=== PATIENT | female | born 1955 | race Caucasian/White ===

== ENCOUNTER → 2024-12-13 10:33 | Outpatient (BNVA) | payer OTHER, SELFPAY | PROVIDERS: PCP Internal Medicine; Visit Provider Physician Assistant Medical | DX: S60.211A Contusion of right wrist, initial encounter (principal); S80.02XA Contusion of left knee, initial encounter; S80.01XA Contusion of right knee, initial encounter; W01.0XXA Fall on same level from slipping, tripping and stumbling without subsequent striking against object, initial encounter | CPT/HCPCS: 29125; 73110; 73130; 73562; 99204 ==

== ENCOUNTER → 2024-12-18 09:02 | Outpatient (BNVA) | payer OTHER, SELFPAY | PROVIDERS: PCP Internal Medicine; Visit Provider Physician Assistant Medical | DX: S60.031A Contusion of right middle finger without damage to nail, initial encounter (principal); W01.0XXA Fall on same level from slipping, tripping and stumbling without subsequent striking against object, initial encounter | CPT/HCPCS: 99213 ==

== ENCOUNTER 2024-12-28 08:57 | Outpatient (REF) | payer OTHER, MEDICARE, SELFPAY ==
--- NOTE | ~2024-12-28 | XR_ITS ---
EXAMINATION: XR HAND 3 OR MORE VIEWS RIGHT HISTORY: M79.641 - Pain in right hand COMPARISON: Comparison is made with the prior examination dated 12/13/2024. FINDINGS: Three views of the right hand are submitted. Osseous mineralization is normal. There is no fracture or dislocation. There is mild degenerative change of the interphalangeal joint of the thumb. The soft tissues are unremarkable. XR/XR hand RT min 3V IMPRESSION: Mild degenerative change of the interphalangeal joint of the thumb. Electronically signed by: Elvis Vazquez MD 12/31/2024 02:37 PM EDT
--- OUTSIDE RECORDS SUMMARY | 2024-12-28 09:38 | XMS_ITS | Data Portability ---
Author Organization [place] - [facility],, LEISA MATHEWS MD Address [address] [address] Care Team Providers Care Mixing Engineer Name Role Phone ABDULAZIZ TRENT Primary Care Provider Assessment No assessment recorded. Plan of Treatment Reminders Order Date Submit Date Provider Last Modified By Organization Details Last Modified Time Details Appointments None recorded. Lab pap test, thinprep, cervical 2022 023 [facility] (Centralized Electronic Ordering - All Locations), Patient Can Go To The Location Of Their Choice, [facility] 3 07:28:08 wet mount, vaginal 2020 021 [email or web address] 1 In-Office Order, Internal Use Only DO Not Attach Compendium DO Not Attach Compendium, Do Not Delete/merge, [id number] 10:54:24 CT + NG DNA, PCR, unspecifie d specimen 2020 021 [facility], [address] [place], [address], 07:34:29 Referral None recorded. Procedures None recorded. Surgeries None recorded. Imaging MAMMO, screening, digital, bilateral - Breast Aspiration and/or Biopsy if needed 2022 023 [facility] ([facility]), [address] [place], [address], 4 07:38:38 bone density 2022 023 [facility] ([facility]), [address] [place], [address], 4 07:38:38 US, axilla - severe pain in right axilla which started when she had the mammogram done 01/15/23. She has pain in the right axilla when driving her car, lifting her arm, and at rest. 2022 023 [facility] (Central Scheduling Radiology), [address] [place], [address], 3 12:34:59 US, pelvis, transabdom inal + transvagin al - please do sonogram to assess persistent left ovarian 3 cm cyst noted on CT scans in 2014 and in 2016, please schedule in early September 2021. 2020 021 [facility] (Central Scheduling Radiology), [address] [place], [address], 2 07:08:07 Medication Orders fluconazol e 150 mg tablet 2020 021 [facility]/Pharmacy #[id number], [address] [place], [address], 2 10:47:20 Estring 2 mg (7.5 mcg/24 hour) vaginal ring 2020 021 [facility]/Pharmacy #[id number], [address] [place], [address], 3 10:49:41 Patient TargetsNo targets recorded. Patient Instructions Encounter Date Encounter Id Patient Instructions Last Modified By Organization Details Last Modified Time 06/24/2021 [id number] atrophic vaginitis: care instructions Not available 06/24/2021 10:03:34 This visit is a phone telehealth visit. The patient consented to the visit by phone. The patient was at home at the time of the call and the provider and patient were the only people on the line. I was at [address] [facility], [address], [place], [place], at the time of the call. She has not been sexually active for a long time, her passed after a long illness, 10 months ago. She has reconnected with an old friend from high school, and they are going out on a date soon, she is not sure where it will go but she wants to improve her vaginal health. Note from recent annual: She appears to be grieving appropriately. We discussed atrophic vaginitis and her incontinence issues, she would like to consider vaginal estrogen, she will call for a telehealth to discuss this. We discussed having her begin to take vaginal hormone replacement therapy. We discussed E2 cream, Estring, Imvexxy, etc, and she chooses Estring. We discussed the need to take a progestin if a uterus is present, and the rationale behind that. We discussed the stated risks of one in 10,000 of development o fa blood clot/DVT/PE tht could be life threatening. We discussed the Women's Health Initive study and the findings. We discused the PEPPI study as well. She is aware that there are conflicting reports in the medical literature concerning the risks and benefits of HRT. We discussed that women are advised by ACOG to take HRT in the lowest dose necessary, and for the shortest time necessary, to control their symptoms. After a long discussion of the potential risks and benefits of HRT she elects to begin vaginal ERT. All questions answered. Rx for vaginal ERT is called in to the pharmacy. Call if any vaginal bleeding occurs upon initiation of HRT, or at any time postmenopausally. Also she has a 3 m left ovarian cyst that has been noted in 2014 and 2017. She has been unable to hold urine in her bladder due to urgency, since then, for repeat testing. After she has been using the estrogen vaginally for 3 months we will repeat the sonogram as she may be able to hold her urine for longer. Face to face discussion for 30 minutes. Not available 06/24/2021 10:11:45 07/24/2021 [id number] vaginal yeast infection: care instructions Not available 07/24/2021 10:54:24 She is here for a complaint of a vaginal yellow discharge. Her a year ago, she has a new partner, has had recently begun having regular intercourse again. On wet felix she has yeast, but there are also WNB TNTC, in sheets. This is unusual, and so a genprobe is also taken. RX Diflucan, await results of cervical cultures. Not available 07/24/2021 10:55:08 10/29/2021 [id number] atrophic vaginitis: care instructions Not available 10/29/2021 11:44:10 constipation: care instructions Not available 10/29/2021 11:44:10 She is here because she tried to insert the Estring this morning and could not get it in. She did get the old one out. She is VERY constipated, this is why she could not get to the upper canal, it was blocked by the constipation. she is advised to try Smooth Moves tea. We discussed that she has lost 30 pounds with exercise and change in diet, she needs to be sure to go regularly and fully. Estring placed easily. Not available 10/29/2021 11:43:49 03/02/2023 [id number] She had her mammogram on 01/15/23, at the time of the mammogram she told the tech that the right breast mammogram was unusually painful, she states that she was advised that was what was needed to get it done properly. Since that time she has had peristent, severe pain in her right axilla. She notes when she drives the position of her arm causes the axilla to be painful, it is also painful at rest, and when using the right arm. She would like me to do an exam and see if I find a reason for her pain. On exam: She is not tender in the right breast, or left breast. She is not tender in the left axilla. She is tender in the mid section of the right axilla. There is no mass, ecchymoses, or swelling noted on exam. She is reliably point tender in the same spot every time. Will check ultrasound of the right axilla to see if a cyst or inflamed lymph node is seen. All questions answered. estuardo Not available 03/02/2023 11:50:39 09/23/2023 [id number] atrophic vaginitis: care instructions estuardo Not available 09/23/2023 11:19:37 learning about healthy weight estuardo Not available 09/23/2023 11:19:37 She is here for annual, doing well. The right axillary pain that she had previously is fully resolved and the sono of the axilla did not evidence any abnormality. Note from 2021: She is here for annual exam. Her due to covid in September, she is still tearful. She has developed urinary incontinence after urination, and urge incontinence, and has vaginal dryness. __ She appears to be doing well. Monthly self breast exam was taught, and stressed, and is advised to call if she discovers any new mass in the breast. estuardo Not available 09/23/2023 11:19:51 Reason for Referral None Reported. Results Created Date Observation Date Name Description Value Unit Range Abnormal Flag Note LastModifiedBy Organization Detail LastModifiedTime 07/24/2007/24/2021 wet mount prem Clue Cells negati ve Not Available In-Office Order Internal Use Only DO Not Attach Compendium DO Not Attach Compendium, Do Not Delete/merge, [id number] 07/24/2021 10:53:15 07/24/20 21 07/24/2021 wet mount prem Trichomonas negati ve Not Available In-Office Order Internal Use Only DO Not Attach Compendium DO Not Attach Compendium, Do Not Delete/merge, [id number] 07/24/2021 10:53:15 07/24/20 21 07/24/2021 wet mount vagin isai Hyphae positi ve Not Available In-Office Order Internal Use Only DO Not Attach Compendium DO Not Attach Compendium, Do Not Delete/merge, [id number] 07/24/2021 10:53:15 07/24/20 21 07/24/2021 wet mount vagin al atrophic epithelium positi ve Not Available In-Office Order Internal Use Only DO Not Attach Compendium DO Not Attach Compendium, Do Not Delete/merge, [id number] 07/24/2021 10:53:15 06/16/20 21 06/16/2021 PAP1C ASE [email or web address] ThinP rep Pap, Image d: NEGAT CHEIKH FOR SQUAM OUS INTRA EPITH ELIAL MADALYN Carbajal AND BRAULIO LEROY . Atrop hy. Maryth reno Galvez hers , CT( CP) (Case elect kathy stroud tanner d 06 23 2021) ADEQU ACY: Satis facto ry . SOURC E: ThinP rep Pap HPV IF Ascus : Refle x 16 and 18, Cervi faisal, Image d CLINI FAISAL INFOR MATIO N: HPV If Diagn osis of ASCUS . LPS neg, Z12.4 Not Available [facility], Cytopathology Service [address] [place], [address], 06/23/2021 16:15:32 07/24/20 21 07/24/2021 CHLAM YDIA DNA SWAB comments MIOX yusuf howard r of [facility] [address] [place] [address] Medic al Dire cassiyd carbajal MD Not Available [facility] [address] [place], [address], 07/26/2021 12:30:23 07/24/20 21 07/24/2021 CHLAM YDIA DNA SWAB chlamydia DNA swab NEGATI VE negati ve Not Available [facility] [address] [place], [address], 07/26/2021 12:30:23 07/24/20 21 07/24/2021 GC DNA SWAB comments MIOX yusuf howard r of [facility] [address] [facility] [place] [address] Medic al Dire cassidy carbajal MD Not Available [facility] [address] [place] [address], [address], 07/26/2021 12:30:28 07/24/20 21 07/24/2021 GC DNA SWAB GC DNA swab NEGATI VE negati ve Not Available [facility] [address] [place], [address], 07/26/2021 12:30:28 09/23/20 23 09/23/2023 [facility] CYTOL OGY results Jessica nt Name: KARINA MOREL : 955 (Age: 67) Lab Acces rosina #: [id number] Colle ction Date: 2022 Acces rosina Date: 2022 Sign Out Date: 2022 Tissu e Sourc e: 1: THINP REP TNT LINE SUPERVISOR PAP TEST, CERVI FAISAL: Final Diagn osis: NEGAT CHEIKH FOR INTRA EPITH ELIAL LESIO N OR MALIG RAD . Atrop hy. Satis facto ry for evalu ation . Clini faisal Histo ry: Date of Last Menst rual Perio d: not avail able Menst rual Histo ry: Post- menop ausal Contr acept cheikh Histo ry: not avail able Ancil frankie Testi ng: HPV (ASCU S) Case image d by the ThinP rep Imagi ng Syste m with iva mehta or amy vaz Perfo rmed at [facility] ate Refer ence Labor atory depar tment of Cytol ogy, [address] [place] Clini faisal Histo ry (othe r): z12.4 , lps 06-16 neg Phone #: [phone], On-Ca ll Patho logis t: [id number] Not Available [facility] (Centralized Electronic Ordering - All Locations) Patient Can Go To The Location Of Their Choice, [id number] 09/29/2023 09:20:25 08/28/20 21 08/28/2021 bone densi ty No observ ation record ed. [email or web address] Not Available 2020 12:00:55 01/18/20 23 01/15/2023 MAMMO , scree naheed, digit al, bilat eral No observ ation record ed. [email or web address] [facility] (Central Scheduling Radiology) [address] [place], [address], 03/10/2023 13:29:16 03/10/20 23 03/10/2023 US, axill a No observ ation record ed. [facility] (Central Scheduling Radiology) [address] [place], [address], 03/10/2023 13:28:46 Result Notes None recorded. 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 Not Available [facility] 16:52:17 Vitamin deficienc y 67062023 Active Not Available [facility] 16:52:17 Osteopeni a 789269619 Active Not Available [facility] 16:52:17 Unilatera l mastalgia Active Not Available [facility] 16:52:17 Lymphaden opathy 70083369 Active Not Available [facility] 16:52:17 Backache 287772237 Active Not Available [facility] 16:52:17 Bicornuat e uterus 12537376 Active Not Available [facility] 16:52:17 Knee pain Active Not Available [facility] 16:52:17 Shoulder joint pain 895531543 Active Not Available [facility] 16:52:17 Cyst of ovary 17593779 Active 2019 1.3 cm left ovarian cyst noted on CT in 2014 and in 03/2017, unchanged Not Available [facility] 16:52:17 Urinary incontine nce 222046786 Active 2020 Not Available [facility] 16:52:17 Atrophic vaginitis 43695320 Active 2020 Not Available [facility] 16:52:17 Problem Notes None recorded. Procedures Surgical History Date Name Laterality Status Provider Name and Address Organization Details Recorded Time 3 Most Recent Mammogram completed Janette Ca [place] - [facility], 07/04/2023 08:53:43 9 replacement of left knee joint completed Janette Meczywor [place] - [facility], 03/07/2019 09:08:05 8 adjustment of lid position completed Janette Meczywor [place] - [facility], 03/07/2019 09:07:33 8 procedure on back completed Janette Meczywor [place] - [facility], 03/07/2019 09:07:04 6 Other completed Janette Meczywor [place] - [facility], 03/07/2017 08:52:07 5 Other completed Janette Meczywor [place] - [facility], 12/30/2015 09:56:38 5 Most Recent Bone Density completed Janette Meczywor [place] - [facility], 03/03/2017 13:37:27 4 Other completed Janette Meczywor [place] - [facility], 03/07/2015 09:27:24 3 Other completed Janette Meczywor [place] - [facility], 03/07/2015 09:27:24 3 Other completed Janette Meczywor [place] - [facility], 01/10/2013 09:11:34 2 Other completed Janette Meczywor [place] - [facility], 01/10/2013 09:11:34 8 Other completed Janette Meczywor [place] - [facility], 01/10/2013 09:11:34 7 Other completed Janette Meczywor [place] - [facility], 01/10/2013 09:11:34 0 Tubal Ligation completed Janette Meczywor [place] - [facility], 01/10/2013 09:11:34 0 Caesarean Section completed Janette Meczywor [place] - [facility], 01/10/2013 09:11:34 Imaging Results Imaging Date Name Status LastModified by Organiz ation Details LastModified Time 08/28/2021 bone density completed [facility] Information not available 08/31/2021 12:00:55 01/15/2023 MAMMO, screening, digital, bilateral completed [facility] ([facility]iology) [address] [place], [address], 03/10/2023 13:29:16 03/10/2023 US, axilla completed [facility] ([facility] Radiology) [address] [place], [address], 03/10/2023 13:28:46 Procedure Notes None recorded. Medical Equipment None Reported. Allergies Allergen ID Allergen Name Allergen Category Reaction Reaction Severity Criticality Documentation Date Start Date Code Code System Note Provider Name and Address Organization Details Recorded Time 18953 adhesive tape environme nt,medica tion hives severe Not available 06/16/2021 [id number] UNK KATHY Ye in [facility], 1 10:40:36 7201 naproxen medicatio n other severe Not available 01/10/2013 7258 RxNorm gi bleed Janette KATHY Simmons in [facility], 3 09:11:34 Medications Name Sig Start Date Stop Date Status Note LastModified by Organization Details LastModified Time cyclobenzap rine 10 mg tablet TAKE 1 TABLET BY MOUTH 3 TIMES A DAY NEEDED FOR PAIN active Not Available Not Available No t Available amoxicillin 500 mg capsule 03/07 completed Not Available Not Available Not Available terconazole 0.4 % vaginal cream INSERT 1 APPLICATO RFUL EVERY DAY BY VAGINAL ROUTE FOR 7 DAYS. 10/29 completed Not Available Not Available Not Available acetaminoph en 325 mg tablet TAKE 2 TABLETS BY MOUTH EVERY 6 HOURS NEEDED FOR PAIN (MILD TO MODERATE PAIN) FOR UP TO 10 DAYS. 09/23 completed Not Available Not Available Not Available carvedilol 6.25 mg tablet TAKE 1 TABLET BY MOUTH TWICE A DAY WITH MEALS active Not Available Not Available No t Available prednisone 10 mg tablet 03/07 completed Not Available Not Available Not Available Estring 2 mg (7.5 mcg/24 hour) vaginal ring INSERT 1 VAGINAL RING EVERY 3 MONTHS BY VAGINAL ROUTE. 09/23 completed Not Available Not Available Not Available ipratropium 0.5 mg-albutero l 3 mg (2.5 mg base)/3 mL nebulizatio n soln INHALE 1 VIAL VIA NEBULIZER Q 4 HOURS PRF WHEEZING 11/06 completed Not Available Not Available Not Available albuterol sulfate 2.5 mg/3 mL (0.083 %) solution for nebulizatio n PLEASE SEE ATTACHED FOR DETAILED DIRECTION S active Not Available Not Available No t Available trazodone 50 mg tablet TAKE 1 AND 1/2 TO 2 TABLETS BY MOUTH EVERY NIGHT AT BEDTIME NEEDED FOR SLEEP active Not Available Not Available No t Available azithromyci n 250 mg tablet TAKE 2 TABLETS BY MOUTH TODAY, THEN TAKE 1 TABLET DAILY FOR 4 DAYS 03/02 completed Not Available Not Available Not Available aspirin 325 mg tablet TAKE 1 TABLET BY MOUTH EVERY DAY active Not Available Not Available No t Available tizanidine 4 mg tablet TAKE 1 TABLET BY MOUTH EVERY 8 HOURS NEEDED FOR MUSCLE SPASTICIT Y FOR 30 DAYS 09/23 completed Not Available Not Available Not Available fluconazole 150 mg tablet TAKE 1 TABLET BY MOUTH EVERY DAY FOR 1 DAY 10/29 completed Not Available Not Available Not Available clarithromy monalisa 500 mg tablet 03/07 completed Not Available Not Available Not Available hydrocodone 5 mg-acetamin ophen 325 mg tablet 03/07 completed Not Available Not Available Not Available meloxicam 15 mg tablet TK 1 T PO D WITH FOOD 11/06 completed Not Available Not Available Not Available prednisone 20 mg tablet TAKE 3 TABLETS BY MOUTH ONCE A DAY FOR 3 DAYS. THEN 2 TABS FOR 3 DAYS, THEN 1 TABLET FOR 3 DAYS. 09/23 completed Not Available Not Available Not Available acetaminoph en 300 mg-codeine 30 mg tablet 03/07 completed Not Available Not Available Not Available amlodipine 5 mg tablet TAKE 1 AND 1/2 TABLETS BY MOUTH EVERY DAY active Not Available Not Available No t Available ciprofloxac in 500 mg tablet active Not Available Not Available Not Available sulfamethox azole 800 mg-trimetho prim 160 mg tablet 03/07 completed Not Available Not Available Not Available peg-electro lyte solution 420 gram oral solution 06/16 completed Not Available Not Available Not Available doxycycline monohydrate 100 mg tablet 03/07 completed Not Available Not Available Not Available tramadol 50 mg tablet TK 1 T PO BID PRN FOR PAIN 11/06 completed Not Available Not Available Not Available acetaminoph en 500 mg tablet TAKE 2 TABLETS BY MOUTH EVERY 6 HOURS NEEDED FOR PAIN active Not Available Not Available No t Available levothyroxi ne 75 mcg tablet TAKE 1 TABLET BY MOUTH EVERY DAY active Not Available Not Available No t Available meloxicam 7.5 mg tablet TAKE 1 TABLET BY MOUTH EVERY DAY active Not Available Not Available No t Available levothyroxi ne 88 mcg tablet Take 1 tablet every day by oral route. 03/07 completed Not Available Not Available Not Available hydromorpho ne 2 mg tablet TK 1 TO 2 TS PO Q 4 TO 6 HOURS PRN P DO NOT DRIVE WHILE ON THIS MEDICATIO N active Not Available Not Available No t Available lorazepam 0.5 mg tablet 03/07 completed Not Available Not Available Not Available DOK 100 mg capsule TK 1 C PO BID STARTING AFTER SURGERY 03/07 completed Not Available Not Available Not Available aspirin 325 mg tablet,mary kay yed release TK 1 T PO BID STARTING AFTER SURGERY 03/07 completed Not Available Not Available Not Available oxycodone-a cetaminophe n 10 mg-325 mg tablet 03/07 completed Not Available Not Available Not Available baclofen 10 mg tablet 03/07 completed Not Available Not Available Not Available amlodipine 10 mg tablet TAKE 1 TABLET BY MOUTH EVERY DAY active Not Available Not Available No t Available benzonatate 100 mg capsule TAKE 1 CAPSULE BY MOUTH 3 TIMES DAILY NEEDED FOR COUGH FOR UP TO 15 DAYS. 09/23 completed Not Available Not Available Not Available cephalexin 500 mg capsule TK 1 C PO BID FOR 7 DAYS 06/16 completed Not Available Not Available Not Available pantoprazol e 40 mg tablet,mary kay yed release 03/07 completed Not Available Not Available Not Available erythromyci n 5 mg/gram (0.5 %) eye ointment APPLY TO SURGICAL AREA TID 03/07 completed Not Available Not Available Not Available Synthroid 50 mcg tablet TK 1 T PO D 11/06 completed Not Available Not Available Not Available omeprazole 20 mg capsule,del ayed release TAKE 1 CAPSULE BY MOUTH TWICE A DAY active Not Available Not Available No t Available codeine 10 mg-guaifene sin 100 mg/5 mL oral liquid TAKE 2 TEASPOONS FUL (10 ML) BY MOUTH 4 TIMES DAILY NEEDED FOR COUGH. NOT COVERED 03/02 completed Not Available Not Available Not Available gabapentin 100 mg capsule active Not Available Not Available Not Available warfarin 1 mg tablet active Not Available Not Available No t Available levofloxaci n 500 mg tablet 03/07 completed Not Available Not Available Not Available methylpredn isolone 4 mg tablets in a dose pack 03/07 completed Not Available Not Available Not Available albuterol sulfate HFA 90 mcg/actuati on aerosol inhaler INHALE 2 PUFFS INTO THE LUNGS EVERY 6 HOURS NEEDED FOR COUGH OR WHEEZING active Not Available Not Available No t Available fluticasone propionate 50 mcg/actuati on nasal spray,suspe nsion SPRAY 2 SPRAYS BY NASAL ROUTE DAILY active Not Available Not Available No t Available amoxicillin 875 mg-potassiu m clavulanate 125 mg tablet 03/07 completed Not Available Not Available Not Available oxycodone 5 mg tablet TAKE 1 TABLET BY MOUTH EVERY 4 HOURS NEEDED FOR PAIN active Not Available Not Available No t Available cyclobenzap rine 5 mg tablet TAKE 1 TABLET BY MOUTH AT BEDTIME active Not Available Not Available No t Available nitrofurant oin monohydrate /macrocryst als 100 mg capsule TAKE 1 CAPSULE BY MOUTH TWICE A DAY FOR 5 DAYS 09/23 completed Not Available Not Available Not Available Flovent HFA 110 mcg/actuati on aerosol inhaler Inhale 1 puff twice a day by inhalatio n route. active Not Available Not Available No t Available B Complex 09/23 completed Not Available Not Available Not Available biotin active Not Available Not Availa ble Not Available Bactrim twice aday active on for 6 more days Not Available Not Available Not Available Iron (ferrous sulfate) 325 mg one a day active Not Available Not Available No t Available hydrocodone 5 mg-acetamin ophen 300 mg tablet 03/07 completed Not Available Not Available Not Available oxycodone 10 mg tablet 03/07 completed Not Available Not Available Not Available prednisolon e sodium phosphate 10 mg/5 mL oral solution 07/24 completed Not Available Not Available Not Available diclofenac 1 % topical gel APPLY TOPICALLY 4 TIMES A DAY 09/23 completed Not Available Not Available Not Available Antiseptic Skin Cleanser (chlorhexid ine) 4 % liquid WASH BODY AND BACK D 03/07 completed Not Available Not Available Not Available Fluvirin 45 mcg (15 mcg x 3)/0.5 mL intramuscul ar suspension active Not Available Not Available N ot Available Fluvirin 45 mcg (15 mcg x 3)/0.5 mL intramuscul ar suspension ADM 0.5ML IM UTD active Not Available Not Available No t Available Fluarix Quad (PF) 60 mcg (15 mcg x 4)/0.5 mL IM syringe ADM 0.5ML IM UTD 11/06 completed Not Available Not Available Not Available Flucelvax Quad (PF) 60 mcg (15 mcg x 4)/0.5 mL IM syringe ADM 0.5ML IM UTD active Not Available Not Available No t Available Vitals Date Recorded Body height Provider Name an d Address Organization Details Last Updated DateTime 06/24/2021 162.56 cm Rosalina Le in [facility], 06/24/2021 09:44:25 Date Recorded Body height Body mass index (BMI) Body weight Body temperature Heart rate Systolic blood pressure Diastolic blood pressure Provider Name and Address Organization Details Last Updated DateTime 1 162.56 cm 33.2 kg/m2 56174.8 4 g 97.2 [degF] 65 /min 152 mm[Hg] 83 mm[Hg] Janette Gonzalez in [facility], 1 10:26:51 Date Recorded Body height Body mass index (BMI) Body weight Body temperature Heart rate Systolic blood pressure Diastolic blood pressure Provider Name and Address Organization Details Last Updated DateTime 2 162.56 cm 30.9 kg/m2 56271.6 3 g 97.4 [degF] 76 /min 144 mm[Hg] 78 mm[Hg] Rosalina Gonzalez in [facility], 2 10:46:31 Date Recorded Body weight Body mass index (BMI) Body height Systolic blood pressure Diastolic blood pressure Provider Name and Address Organization Details Last Updated DateTime 03/02/2023 39555.22 g 31.1 kg/m2 162.56 cm 138 mm[Hg] 77 mm[Hg] Rosalina Francis MA - [facility], 3 10:31:53 Date Recorded Body height Body mass index (BMI) Body weight Body temperature Heart rate Systolic blood pressure Diastolic blood pressure Provider Name and Address Organization Details Last Updated DateTime 3 162.56 cm 33.2 kg/m2 55781.0 5 g 98.2 [degF] 63 /min 183 mm[Hg] 81 mm[Hg] Janette Ca MA - [facility], 3 10:47:49 Social History Question Answer Notes LastModified by Organizat ion Details LastModified Time Tobacco Smoking Status Never Smoker Not Available [facility] 08/26/2020 03:19:40 What Is Your Level Of Alcohol Consumption? None [id number] Information not available 08/26/2020 What Is Your Level Of Caffeine Consumption? Occasional [id number] Information not available 08/26/2020 In The 14 Days Before Symptom Onset, Have You Had Close Contact With A Laboratory-confir med COVID-19 While That Case Was Ill? No Information not available 06/16/2021 In The 14 Days Before Symptom Onset, Have You Had Close Contact With A Person Who Is Under Investigation For COVID-19 While That Person Was Ill? No Information not available 06/16/2021 Have You Been To An Area Known To Be High Risk For COVID-19? No Information not available 06/16/2021 Are You Currently Employed? No Information not available 06/16/2021 What Type Of Diet Are You Following? REGULAR [id number] Information not available 08/26/2020 Which Illicit Or Recreational Drugs Have You Used? No [id number] Information not available 08/26/2020 Do You Reside In Or Have You Traveled To An Area Where Ebola Virus Transmission Is Active? No [id number] Information not available 08/26/2020 Do You Or Have You Ever Used E-cigarettes Or Vape? Never Used Electronic Cigarettes [id number] Information not available 08/26/2020 Education 12 Information no t available 01/10/2013 What Is The Highest Grade Or Level Of School You Have Completed Or The Highest Degree You Have Received? 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 0 Information no t available 03/07/2017 Are There Any Guns Present In Your Home? No Information not available 06/16/2021 High Number Of Sexual Partners No Information not available 03/07/2017 To Which Gender Do You Self-identify? Female Information not available 03/07/2017 Marital Status Informatio n not available 09/23/2023 What Was The Date Of Your Most Recent Tobacco Screening? 09/23/2023 Information not available 09/23/2023 What Is Your Relationship Status? Information not available 06/16/2021 Are You Sexually Active? No [id number] Information not available 08/26/2020 Do You Or Have You Ever Used Smokeless Tobacco? Never Used Smokeless Tobacco [id number] Information not available 08/26/2020 How Much Tobacco Do You Smoke? No [id number] Information not available 08/26/2020 General Stress Level High Information not available 03/07/2015 Do You Feel Stressed (tense, Restless, Nervous, Or Anxious, Or Unable To Sleep At Night)? [id number] Information not available 06/16/2021 Do You Use Any Illicit Or Recreational Drugs? No Information not available 07/24/2021 Have You Recently (within The Last 12 Weeks, Or During A Current ) Traveled To Or Lived In A Zika-affected Area? No Information not available 03/07/2017 Do You Or Have You Ever Used Any Other Forms Of Tobacco Or Nicotine? No Information not available 06/16/2021 Sex: Female Functional Status Question Answer Note LastModified by Organizat ion Details LastModified Time What is your exercise level? Occasional [id number] Information not available 08/26/2020 Mental Status None recorded. Family History Relationship Description Onset Age of this Age Resolved Age Notes LastModified by Organization Details LastModified Time Mother Malignant neoplastic disease brain/ kidney (previ ously record ed as Cancer ) Not available 12/30/2015 10:13:20 Sister Malignant neoplastic disease skin (previ ously record ed as Cancer ) Not available 12/30/2015 10:13:20 Sister Malignant tumor of lung [email or web address] Not available 2019 10:59:09 Father Malignant neoplastic disease throat (previ ously record ed as Cancer ) Not available 12/30/2015 10:13:20 Unspecified Relation Kidney disease cancer ..cous in. a few times. [email or web address] Not available 11/06/2019 10:59:55 Daughter Malignant tumor of breast tmeczywor Not available 2022 10:51:13 Medical History Condition Response Anesthesia complications Y High Blood Pressure N Candidate for MyRisk panel N Autoimmune Condition N Depression N Lung Disease N Defects or Inherited Disease N History of Ovarian Cancer N BRCA testing in past N Anxiety Disorder N Arthritis Y Infertility N History of Cancer N Endometriosis N Kidney or Bladder Problems N Thyroid Problems Y GI Problems Y Anemia N History of Breast Cancer N NATACHA exposure N Osteopenia Y Psychiatric Illness N Diabetes N Headaches or Migraines N Asthma Y Hepatitis N Heart Disease N Hypertension N Osteoporosis N Gynecological History Statement/Question Response If Post Menopausal, Age at Menopause 43 Most Recent Mammogram 01/15/2023 Age at First Child 21 Most Recent Bone Density 05/22/2015 Obstetrics History GPAL:G 5 P 3 0 2 3 Type Value Full Term 3 Spontaneous 2 Living 3 Total 5 Immunizations Vaccine Type Date Status Note Provider Nam e and Address Organization Details Recorded Time pneumococcal, unspecified formulation 5 completed KATHY Fonseca in [facility], 09/23/2023 10:47:18 Influenza, split virus, quadrivalent, preservative 9 completed KATHY Ye in [facility], 08/17/2021 07:52:13 COVID-19, mRNA, LNP-S, PF, 30 mcg/0.3 mL dose 1 completed Janette Meczywor null, [place] - [facility], 09/23/2023 10:47:18 COVID-19, mRNA, LNP-S, PF, 30 mcg/0.3 mL dose 1 completed Janette Meczywor null, [place] - [facility], 09/23/2023 10:47:18 COVID-19, mRNA, LNP-S, PF, 30 mcg/0.3 mL dose 1 completed Janette Meczywor null, [place] - [facility], 09/23/2023 10:47:18 Influenza, MDCK, quadrivalent, PF 7 completed Janette Meczywor null, [place] - [facility], 09/23/2023 10:47:18 Influenza, high-dose, quadrivalent, PF 1 completed Janette Meczywor null, [place] - [facility], 09/23/2023 10:47:18 pneumococcal polysaccharide PPV23 0 completed Janette Meczywor null, [place] - [facility], 09/23/2023 10:47:18 influenza, unspecified formulation 2 completed Janette Meczywor null, [place] - [facility], 09/23/2023 10:47:18 Td(adult) unspecified formulation 5 completed Janette Meczywor null, [place] - [facility], 09/23/2023 10:47:18 Tdap 3 completed Janette Meczywor null, [place] - [facility], 09/23/2023 10:47:18 Pneumococcal conjugate PCV 13 5 completed Janette Meczywor null, [place] - [facility], 09/23/2023 10:47:18 Influenza, high-dose, trivalent, PF 0 completed Janette Meczywor null, [place] - [facility], 09/23/2023 10:47:18 Influenza, split virus, trivalent, preservative 3 completed Janette Meczywor null, [place] - [facility], 09/23/2023 10:47:18 Influenza, split virus, trivalent, preservative 2 completed Janette Meczywor null, [place] - [facility], 09/23/2023 10:47:18 Influenza, split virus, trivalent, preservative 7 completed Janette Meczywor null, [place] - [facility], 09/23/2023 10:47:18 Influenza, split virus, trivalent, PF 6 completed Janette Meczywor null, [place] - [facility], 09/23/2023 10:47:18 Influenza, split virus, trivalent, PF 5 completed Janette Meczywor null, [place] - [facility], 09/23/2023 10:47:18 Hep B, adult 6 completed Janette Meczywor null, [place] - [facility], 09/23/2023 10:47:18 Hep B, adult 5 completed Janette Meczywor null, [place] - [facility], 09/23/2023 10:47:18 Hep B, adult 5 completed Janette Meczywor null, [place] - [facility], 09/23/2023 10:47:18 DTaP 3 completed Janette Meczywor null, [place] - [facility], 09/23/2023 10:47:18 Influenza, split virus, quadrivalent, PF 8 completed Janette Meczywor null, [place] - [facility], 09/23/2023 10:47:18 Past Encounters Encounter ID Performer Location Encounter Start Date Encounter Closed Date Diagnosis/Indication Diagnosis SNOMED-CT Code Diagnosis ICD10 Code Diagnosis Note [id number] MD LEISA Hodge MD [address] [place] [address],[place] [address] 01/10/2013 08:34:08 01/10/2013 12:05:24 [id number] LEISA MATHEWS MD [address] [place] [address],[place] [address] 03/07/2015 09:00:20 03/07/2015 13:09:14 Screening for malignant neoplasm of cervix 512875346 Screening mammography 33278985 Menopausal syndrome 046290448 [id number] [facility] LEISA MATHEWS MD [address] [place] [address], [place] [address] 05/27/2015 13:58:02 05/27/2015 16:00:25 Vitamin deficiency 16996007 Osteopenia 207303403 [id number] MD LEISA Hodge MD [address] [place] [address], [place] [address] 12/30/2015 09:50:21 12/30/2015 15:28:39 Unilateral mastalgia 893370455 N64.4 Lymphadenopathy 82037463 R59.0 [id number] MD LEISA Hodge MD [address] [place] [address], [place] [address] 03/07/2017 08:36:47 03/07/2017 11:24:19 Screening for malignant neoplasm of cervix 435867204 Z12.4 Screening mammography 24 402868 Z12.31 [id number] MD LEISA Hodge MD [address] [place] [address], [place] [address] 03/07/2019 08:58:34 03/07/2019 10:04:55 Screening for malignant neoplasm of cervix 067305637 Z12.4 Screening mammography 24 252543 Z12.31 Screening for osteoporosis 093461683 Z13.820 [id number] MD LEISA Hodge MD [address] [place] [address], [place] [address] 11/06/2019 10:31:26 11/06/2019 12:55:26 Pain in pelvis 60901712 R10.2 Cyst of ovary 33057713 N 83.02 [id number] MD LEISA Hodge MD [address] [place] [address],[place] [address] 06/16/2021 10:27:38 06/16/2021 11:36:32 Screening for malignant neoplasm of cervix 894492686 Z12.4 Screening mammography 24 058002 Z12.31 Screening for osteoporosis 961185189 N95.8 Atrophic vaginitis 01434 000 N95.2 Urinary incontinence 165 876094 R32 [id number] MD LEISA Hodge MD [address] [place] [address] [place] [place] [address] 06/24/2021 09:43:00 06/24/2021 11:28:26 Atrophic vaginitis 10373698 N95.2 Cyst of ovary 98716682 N 83.02 [id number] MD LEISA Hodge MD [address] [place] [address] [place] 5 07/24/2021 10:22:01 07/24/2021 11:26:52 Venereal disease screening 584517063 Z11.3 Candidal vulvovaginitis 27609873 B37.3 [id number] MD LEISA Hodge MD [address] [place] [address],[place] [address] 10/29/2021 10:42:22 10/29/2021 12:02:28 Constipation 71123309 K59.00 Menopausal syndrome 1237 43898 N95.9 Atrophic vaginitis 02967 000 N95.2 [id number] MD LEISA Hodge MD [address] [place] [address],[facility] [place] [address] 03/02/2023 10:28:40 03/02/2023 11:52:41 Pain in axilla 173574481 M79.629 [id number] MD LEISA Hodge MD [address] [place] [address], [place] [address] 09/23/2023 10:40:37 09/23/2023 13:30:27 Screening for malignant neoplasm of cervix 333363384 Z12.4 Screening mammography 24 979287 Z12.31 Screening for osteoporosis 767073408 N95.8 Health Concerns Section Related Observation LastModified by Organization Detai ls LastModified Time None Recorded Concern Status LastModified by Organization Details LastModified Time None Recorded Advance Directives Directive None Recorded Payers Encounter Date Sequence Insurance Name Policy Number Policy Hernández Covered Member ID Hernández Member ID Guarantor Name 06/24/2021 1 [employer] (MEDICARE REPLACEMENT PPO) [id number] Karina Mary Beth [id number] Karina Mary Beth 07/24/2021 1 [employer] (MEDICARE REPLACEMENT PPO) [id number] Karina Mary Beth [id number] Karina Mary Beth 10/29/2021 1 [employer] (MEDICARE REPLACEMENT PPO) [id number] Karina Mary Beth [id number] Karina Mary Beth 03/02/2023 1 [employer] (MEDICARE REPLACEMENT/A DVANTAGE - PPO) Karina Mary Beth [id number] Karina Mary Beth 09/23/2023 1 [employer] (MEDICARE REPLACEMENT/A DVANTAGE - PPO) Karina Mary Beth [id number] Karina Mary Beth Notes Date Note Type Note Provider Name and Address Organization Details Recorded Time 06/24/2021 text/html This visit is a phone telehealth visit. The patient consented to the visit by phone. The patient was at home at the time of the call and the provider and patient were the only people on the line. I was at [address] [place] [address], [address], [place], at the time of the call. She has not been sexually active for a long time, her passed after a long illness, 10 months ago. She has reconnected with an old friend from high school, and they are going out on a date soon, she is not sure where it will go but she wants to improve her vaginal health. Note from recent annual: She appears to be grieving appropriately.We discussed atrophic vaginitis and her incontinence issues, she would like to consider vaginal estrogen, she will call for a telehealth to discuss this. Leisa Mathews MD [address], [place], [address], [facility], 06/24/2021 10:27:39 07/24/2021 text/html She is here for a complaint of a vaginal yellow discharge. Her a year ago, she has a new partner, has had recently begun having regular intercourse again. Leisa Mathews MD [address], [place], [address], [facility] - [facility], 07/24/2021 10:56:59 10/29/2021 text/html She is here because she tried to insert the Estring this morning and could not get it in. She did get the old one out. Leisa Mathews MD [address], [place], [phone], [facility] - [facility], 10/29/2021 11:44:28 03/02/2023 text/html She had her mammogram on 01/15/23, at the time of the mammogram she told the tech that the right breast mammogram was unusually painful, she states that she was advised that was what was needed to get it done properly. Since that time she has had peristent, severe pain in her right axilla. She notes when she drives the position of her arm causes the axilla to be painful, it is also painful at rest, and when using the right arm. She would like me to do an exam and see if I find a reason for her pain. Leisa Mathews MD [address], [place], [phone], [facility], 03/02/2023 11:50:56 09/23/2023 text/html She is here for annual, doing well. The right axillary pain that she had previously is fully resolved and the sono of the axilla did not evidence any abnormality. Note from 2021: She is here for annual exam. Her due to covid in September, she is still tearful.She has developed urinary incontinence after urination, and urge incontinence, and has vaginal dryness. Leisa Mathews MD [address] [facility],[address], [place], [address], [place] [facility], 09/23/2023 11:23:49 OBGyn Episode No OBEpisode recorded.
--- OUTSIDE RECORDS SUMMARY | 2024-12-28 09:38 | XMS_ITS | Clinical Summary ---
Author Organization [facility] Address [address] [place] [address] Care Team Providers Care Marketing And Promotions Manager Name Role Phone Nacho Georges MD Primary Care Provider [phone] Allergies Active Allergy Reactions Criticality Noted Date Comments Cortisone 09/13/2008 Facial flushing Levofloxacin 06/24/2015 Naproxen Other (See Comments) Medium 07/27/2007 BLOOD IN STOOL Nsaids Other (See Comments) 10/30/2019 gastritis Tape 01/21/2016 Paper tape-red rash Vancomycin 01/21/2016 rash Medications Medication Sig Dispensed Refills Start Date End Date Status traZODone (DESYREL) 50 MG tablet Take 1 tablet by mouth every night at bedtime. 0 10/22/2020 Active albuterol 108 (90 Base) MCG/ACT inhaler Inhale 2 puffs into the lungs every 6 (six) hours as needed. 0 09/26/2020 Active fluticasone (FLOVENT HFA) 110 MCG/ACT inhaler Inhale 220 mcg into the lungs 2 (two) times a day. 0 09/11/2020 Active amLODIPine (NORVASC) tablet 5 mg Take 7.5 mg by mouth daily. 0 12/13/2019 Active carvedilol (COREG) 6.25 MG tablet Take 6.25 mg by mouth 2 (two) times a day. 0 10/22/2020 Active levothyroxine (SYNTHROID) tablet 75 mcg Take 75 mcg by mouth daily. 0 03/14/2020 Active omeprazole (PriLOSEC) 20 MG capsule Take 20 mg by mouth daily. 0 03/14/2020 Active meloxicam (MOBIC) 7.5 MG tablet Take 1 tablet (7.5 mg total) by mouth daily. 0 04/10/2024 Active cyclobenzaprine (FLEXERIL) 5 MG tablet TAKE 1 TABLET BY MOUTH THREE TIMES A DAY NEEDED FOR MUSCLE SPASM 0 04/15/2024 Active Social History Tobacco Use Types Packs/Day Years Used Date Smoking Tobacco: Never Smokeless Tobacco: Never Alcohol Use Standard Drinks/Week Comments Never 0 (1 standard drink = 0.6 oz pur e alcohol) Sex and Gender Information Value Date Recorded Sex Assigned at Not on file Gender Identity Not on file Sexual Orientation Not on file Job Start Date Occupation Industry Not on file Not on file Not on file Last Filed Vital Signs Vital Sign Reading Time Taken Comments Blood Pressure 140/77 06/14/2024 11:00 AM EDT Pulse 73 06/14/2024 11:00 AM EDT Temperature 37 ??C (98.6 ??F) 06/14/2024 11:00 AM EDT Respiratory Rate - - Oxygen Saturation 95% 06/14/2024 11:00 AM EDT Inhaled Oxygen Concentration - - Weight 80.3 kg (177 lb) 06/14/2024 11:00 AM EDT Height 162.6 cm (5' 4 ) 06/14/2024 11:00 AM EDT Body Mass Index 30.38 06/14/2024 11:00 AM EDT Plan of Treatment Health Maintenance Due Date Last Done Comments Hepatitis C Screening 1954 Depression Screening 1966 Preventative Health Evaluation 1972 Colon Cancer Screening (Colonoscopy) 1999 Breast Cancer Screening (Mammogram) 2004 Shingrix-Zoster Vaccine (1 of 2) 2004 Fall Risk Assessment 2019 Osteoporosis Screening (DEXA Scan) 2019 DTap / Tdap / Td (3 - Td or Tdap) 01/05/2023 01/05/2013, 10/24/2012, 04/30/2005 COVID-19 Vaccine ( season) 2024 08/13/2021, 01/28/2021, 01/06/2021 Influenza Vaccine (#1) 2024 , 06/24/2021, 07/14/2020, Additional history exists RSV Adult > 60+ Yrs or (1 - 1-dose 75+ series) 2029 Hepatitis B Vaccines Completed 02/18/2006, 09/08/2005, 08/05/2005 Pneumococcal Vaccine Completed 10/22/2020, 05/04/2015, 05/04/2015 RSV Ped < 20 months Aged Out No longe r eligible based on patient's age to complete this topic Care Teams Marketing And Promotions Manager Relationship Specialty Start Date End Date Nacho Georges MD [address] [place] [id number] PCP - General Internal Medicine 04/05/18
--- OUTSIDE RECORDS SUMMARY | 2024-12-28 09:39 | XMS_ITS | Clinical Summary ---
Author Organization 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 4 Active carvediloL (COREG) 6.25 mg tablet TAKE 1 TABLET BY MOUTH TWICE A DAY WITH MEALS 4 Active cyclobenzaprine (FLEXERIL) 5 mg tablet Take 1 Tablet by mouth 3 times daily as needed for Muscle spasms. 4 Active fluticasone propionate (FLONASE) 50 mcg/actuation nasal spray 2 Sprays by Nasal route daily. 4 Active levothyroxine (SYNTHROID, LEVOTHROID) 100 mcg tablet Take 1 Tablet by mouth daily for 360 days. 4 06/16/20 25 Active meloxicam (MOBIC) 7.5 mg tablet Take 1 Tablet by mouth daily. 4 Active omeprazole (PriLOSEC) [address] capsule Take 1 Capsule by mouth 2 times daily for 360 days. 06/16/20 25 Active semaglutide (Wegovy) 0.25 mg/0.5 mL injection pen Inject 0.25 mg into the skin once a week. Active traZODone (DESYREL) 50 mg tablet TAKE 1 AND 1/2 TO 2 TABLETS BY MOUTH EVERY NIGHT AT BEDTIME NEEDED FOR SLEEP Active predniSONE (DELTASONE) 20 mg tablet Take 60 mg PO daily for 3 days, then take 40 mg PO daily for 3 days, then 20 mg PO daily for 3 days, then stop 18 tablet Active albuterol HFA (ProAir HFA) 90 mcg/actuation inhaler Inhale 2 puffs by mouth every 4 (four) hours if needed for wheezing or shortness of breath. Active budesonide (PULMICORT) 180 mcg/actuation inhaler Inhale 1 puff by mouth 2 (two) times a day. Rinse mouth with water after use to reduce aftertaste and incidence of candidiasis. Do not swallow. 4 Active Active Problems Problem Noted Date Diagnosed Date Class 1 obesity without seri ous comorbidity with body mass index (BMI) of 32.0 to 32.9 in adult 08/14/2024 COVID-19 08/14/2024 Dyspnea on exertion 06/17/2023 Overview (08/14/2024): Last Assessment & Plan: In the past, one of the patient's concerns was dyspnea on exertion. Back in 2013 she had an echocardiogram that was labeled as normal. She is now treated with a rescue inhaler for asthma. She does not believe she is having any progressive symptoms of dyspnea on exertion, nor orthopnea, that should prompt additional testing or imaging. Certainly if there are any changes in her status this can be considered. I did review her stress echo from May 2021 again. She was found to have a normal LV cavity size and function, normal wall motion, and an EF of 55 to 60% at 69% max predicted heart rate. She had normal augmented response to exercise with no wall motion abnormality. She did end up undergoing a nuclear stress test that was also normal 2 months later, because of failure to achieve target heart rate. Would recommend risk factor modification and report symptoms of concern. Bicornuate uterus 04/19/2022 Lymphadenopathy 04/19/2022 Osteopenia 04/19/2022 Urinary incontinence 06/16/2021 GERD (gastroesophageal reflux disease) 0 Essential hypertension 11/11/2019 Overview (08/14/2024): Last Assessment & Plan: Patient's blood pressure on arrival is 130/70, on repeat by me 140/82. She questions whether she should stay on the higher dose of amlodipine and her carvedilol. I have explained to her that if these are stopped her blood pressure will not be well controlled. Suggested that the parameter of 130/80 or better is a goal and will likely provide better outcomes in the long run if she is running lower than higher. She should be following a low-sodium diet. She clarifies that her weight is several pounds less at home on her scale. Continue weight loss efforts. Risk factor modification with exercise. Cyst of ovary 11/06/2019 Hepatic steatosis 11/06/2019 Insomnia 09/06/2019 Hyperlipidemia 02/27/2018 Overview (08/14/2024): Last Assessment & Plan: I do not see that a lipid has been checked in over 2 years. Assuming that she will require a repeat TSH due to the recent adjustment in her thyroid medication she could combine a fasting lipid profile with this blood work. I provided orders for her. Certainly would recommend healthful diet low in saturated fat and simple carbohydrates. Vitamin D deficiency 06/11/2015 Asthma 05/04/2015 Back pain 01/01/2011 Overview (08/14/2024): Spinal stenosis Shoulder pain 01/01/2011 Overview (08/14/2024): Rotator cuff tear, surgery by Dr. Landeros 08/10/2010 Lung mass 06/23/2008 Overview (08/14/2024): Seen by Dr. Salas 06/18/2009, no further follow-up recommended. Knee pain 2007 Overview (08/14/2024): Arthroscopic surgery 2006 Hemorrhage of gastrointestinal tract 06/30/2007 Overview (08/14/2024): Negative colonoscopy 04/12/2005, no colon cancer screening needed for 10 years. Upper endoscopy negative 07/27/2007 IMO update Hypothyroidism 02/18/2006 Other specified nutritional anemias 01/28/2006 Overview (08/14/2024): IMO update Encounters Date Type Department Care Team Description 10/25/2024 Telephone Bariatric Surgery - [place] [address] [facility] [address] [place] [address] Cathy Baker PA Advice Only (Peer to Peer) from Last 3 Months Immunizations Name Administration Dates Next Due DTaP (Infanrix) 6wks to less than 7yo 10/24/2012 Hepatitis B (Iqkwbhd-N-Jzzyk , Recombivax HB-Adult) 19yo and older 02/18/2006,09/08/2005,08/05/2005 Influenza Quadravalent, MDCK , 0.5ml, preservative free (Flucelvax) 6mo and older 08/02/2017 Influenza trivalent, 0.5mL ( Fluad) 65yo and older 06/24/2021,07/14/2020 Influenza trivalent, 0.5mL, preservative free (Fluarix; FluLaval; Fluzone) ages 6mo and older (Afluria) 3 years and older 07/06/2019,07/13/2018,07/05/2016,07/26,07/14/2013,09/23/2012,09/12/2012 ,09/13/2007 Influenza, Unspecified 07/07/2018,08/02/2017 PPD Test 06/24/2015,09/09/2007,08/05/2005 Pneumococcal conjugate 13 va lent (Prevnar 13, PCV13) 2mo and older 05/04/2015 Pneumococcal polysaccharide 23 valent (Pneumovax 23) 2yo and older 10/22/2020 Td Tetanus diptheria (Tdvax) 7yo and older 04/30/2005 Tdap Tetanus diptheria acell ular pertussis (Boostrix; Adacel) 7yo and older 01/05/2013 Surgical History Surgery Date Site/Laterality Comments JOINT REPLACEMENT Bilateral PROCEDURE:JOINT REPLACEMENT;COMMENT:knee ROTATOR CUFF REPAIR Right PROCEDURE:ROTATOR CUFF REPAIR EYE SURGERY PROCEDURE:EYE SURGERY TONSILLECTOMY PROCEDURE:TONSILLECTOMY TUBAL LIGATION PROCEDURE:TUBAL LIGATION HERNIA REPAIR PROCEDURE:HERNIA REPAIR SECTION PROCEDURE: SECTION BACK SURGERY PROCEDURE:BACK SURGERY;COMMENT:L4-5,L3-4' L2 Medical History Medical History Date Comments Arthritis DX:Arthritis DDD (degenerative disc disease), lumbar DX:DDD (degenerative disc disease), lumbar Asthma DX:Asthma Hypertension DX:Hypertension Depression DX:Depression GERD (gastroesophageal reflux disease) DX:GERD (gastroesophageal reflux disease) Disease of thyroid gland DX:Dise ase of thyroid gland Social History Tobacco Use Types Packs/Day Years Used Date Smoking Tobacco: Never Smokeless Tobacco: Never Tobacco Cessation:Counseling Given: Not Answered Alcohol Use Standard Drinks/Week Comments Never 0 (1 standard drink = 0.6 oz pur e alcohol) Housing Instability Answer Date Recorde d Are you worried that in the next 2 months you may not have stable housing? No 12/27/2024 Food Access & Nutrition Answer Date Rec orded Do you have access to a vari ety of food including fruits and vegetables? Yes 12/27/2024 Access to Healthcare Answer Date Record ed Within the last 3 months, ho w many times did you visit the emergency department for your medical care? 0 12/27/2024 Health Literacy Answer Date Recorded How often do you need to hav e someone help you when you read instructions, pamphlets, or other written material from your doctor or pharmacy? Never 12/27/2024 Caregiver: How often do you need to have someone help you when you read instructions, pamphlets, or other written material from your doctor or pharmacy? Not on file 12/27/2024 Financial Risk Answer Date Recorded How hard is it for you to pa y for the very basics like food, housing, medical care, and air conditioning / heating? Not very hard 12/27/2024 Transportation Answer Date Recorded Has the lack of transportati on kept you from meetings, work, or from getting things needed for daily living? No Has the lack of transportati on kept you from medical appointments or from getting medications? No 12/27/2024 Social Isolation Answer Date Recorded How often do you feel lonely or isolated from those around you? Sometimes 12/27/2024 Food Risk Answer Date Recorded Within the past 12 months we worried whether our food would run out before we got money to buy more. Never true 12/27/2024 Within the past 12 months th e food we bought just didn't last and we didn't have money to get more. Never true 12/27/2024 Dependent Care Answer Date Recorded Do you need help finding or paying for care for your loved ones. For example, child and adolescent therapist or elderly care for an older adult? No 12/27/2024 Education Answer Date Recorded Do you think completing more education or training, like finishing a GED, going to college, or learning a trade, would be helpful for you? No 12/27/2024 Employment and Income Answer Date Recor ded During the last four weeks, have you been actively looking for work? No 12/27/2024 Living Situation Answer Date Recorded What is your living situation? 0 12/27/2024 Comments Unknown Sex and Gender Information Value Date Recorded Sex Assigned at Not on file Legal Sex Female 4:16 PM EST Gender Identity Not on file Sexual Orientation Not on file Obstetrics History Last Filed Vital Signs Vital Sign Reading Time Taken Comments Blood Pressure 164/98 09/18/2024 10:37 AM EST AV G BP Pulse 65 09/18/2024 10:37 AM EST Temperature 35.9 ??C (96.7 ??F) 09/18/2024 10:[address] Respiratory Rate 16 09/18/2024 10:32 AM EST Oxygen Saturation 98% 09/18/2024 10:32 AM EST Inhaled Oxygen Concentration - - Weight 85.1 kg (187 lb 9.6 oz) 09/18/2024 10:32 AM EST Height 162.6 cm (5' 4 ) 09/18/2024 10:32 AM EST Body Mass Index 32.2 09/18/2024 10:32 AM EST Plan of Treatment Upcoming Encounters Date Type Department Care Team (Late st Contact Info) Description 12/28/2024 10:30 AM EST Office Visit Adult Medicine [address] [phone] Jenn Nguyen PA [address] [place] [phone] Health Maintenance Due Date Last Done Comments Hepatitis A Vaccines (1 of 2 - Risk 2-dose series) 1973 Zoster Vaccines (1 of 2) 2004 RSV Immunization Patients 60+ Years Old (1 - Risk 60-74 years 1-dose series) 2014 Falls Risk Assessment 10/01/2022 DTaP,Tdap,and Td Vaccines (4 - Td or Tdap) 01/05/2023 01/05/2013, 10/24/2012, 04/30/2005 COVID-19 Vaccine ( - season) 2024 08/13/2021, 01/28/2021, 01/06/2021 Influenza Vaccine (#1) 2024 , 07/14/2020, 07/06/2019, Additional history exists Medicare Annual Wellness Visit 11/21/2024 11/21/2023 Breast Cancer Screening 01/17/2025 01/18/20 23, 12/15/2020, 12/11/2019, Additional history exists Hypertension/CHF/CAD Annual BMP Blood Test 02/06/2025 02/07/2024 Depression Screening 12/27/2025 12/27/2024, 11/21/19 24 Social Influencers of Health Screening 12/27/2025 12/27/2024 Colorectal Cancer Screening: Colonoscopy 11/24/2027 11/24/2017 Cholesterol Screening (Lipid Panel) 02/06/2029 02/07/2024 Osteoporosis Screening (Bone Density Screening) 08/28/2031 08/28/2021 Hepatitis B Vaccines Completed 02/18/2006, 09/08/2005, 08/05/2005 Hepatitis C Screening Completed 07/27/2013 Pneumococcal Vaccine: 50+ Years Completed 10/22/2020, 05/04/2015, 05/04/2015 HIB Vaccines Aged Out No longer eligi ble based on patient's age to complete this topic HPV Vaccines Aged Out No longer eligi ble based on patient's age to complete this topic IPV Vaccines Aged Out No longer eligi ble based on patient's age to complete this topic MMR Vaccines Aged Out No longer eligi ble based on patient's age to complete this topic Meningococcal ACWY Vaccine Aged Out N o longer eligible based on patient's age to complete this topic Meningococcal B Vacine Aged Out No lo nger eligible based on patient's age to complete this topic RSV Immunization Patients Under 20 months Aged Out No longer eligible based on patient's age to complete this topic Varicella Vaccines Aged Out No longer eligible based on patient's age to complete this topic Procedures Procedure Name Priority Date/Time Associated Diagnosis Comments ANNUAL BMP BLOOD TEST Routine 02/07/2024 LIPID PANEL Routine 02/07/2024 DEPRESSION SCREENING Routine 11/21/2023 RAJ SCREENING DIGITAL Routine 01/17/2023 10:09 AM EDT Encounter for screening mammogram for malignant neoplasm of breast DXA BONE DENSITY STUDY 1+ SITS AXIAL SKEL Routine 08/28/2021 10:24 AM EDT Unspecified menopausal and perimenopausal disorder COLONOSCOPY Routine 11/24/2017 HEPATITIS C SCREENING Routine 07/27/2013 from Last 3 Months or Most Recently Relevant to Health Maintenance Results * Annual BMP Blood Test (02/07/2024) [facility] Annual BMP Blood Test abstracted Historical Provider HEALTH MAINTENANCE Final Result * (ABNORMAL) Lipid panel (02/07/2024) [facility] LDL/HDL Ratio 4 0 - 4 Triglycerides 174(A) 0 - 150 mg/dL Cholesterol 212(A) 0 - 200 mg/dL HDL 50 >=40 mg/dL LDL Cholesterol 128(A) 0 - 100 mg/dL Blood Venous blood specimen / Unknown Historical Provider LAB BLOOD ORDERABLES Renetta l Result * Depression Screening (11/21/2023) [facility] Depression Screening abstracted [facility] Provider HEALTH MAINTENANCE Final Result * RAJ SCREENING DIGITAL (01/17/2023 10:09 AM EDT) Anatomical Region Laterality Modality Mammography 01/13/2023 10:0 6 AM EDT Narrative 01/17/2023 10:[address] [facility] Diagnostic Imaging Department [address] [place] [id number] Patient: ??KARINA CLINTON ?/Age/Sex: 1955 - 67 - F Unit#: ??[id number] ? Location/Status: ??SPDIMAM/REG CLI ? Mnemonic/Ordering Site: ??DIGSC/SPMAM Ordering Physician: ??LEISA CRAWFORD MD Raj Screening Digital - 01/15/23805 EXAM: Raj Screening Digital EXAM DATE AND TIME: 01/15/2023 8:07 AM HISTORY: ??Screening. Daughter had breast carcinoma at age 42. COMPARISON: ??12/15/20, 12/11/19, 12/07/18 TECHNIQUE: CC and MLO views of both breasts were obtained using full field digital mammography. Bilateral digital breast tomosynthesis was performed in the MLO projection. Computer aided detection with Teknovus 7.2-H and BrakeQuotes.com 3D 3.1 was employed. TISSUE DENSITY: a. The breasts are almost entirely fatty. FINDINGS: No suspicious masses, grouped microcalcifications, or areas of architectural distortion are seen. Skin and vascular calcifications are again noted. IMPRESSION: Stable mammographic appearance of the breasts. ??No evidence of malignancy is seen. A negative mammogram in the presence of a clinically suspicious palpable abnormality does not preclude the possibility of malignancy or alter the indications for biopsy. BI-RADS: ??Category 2: Benign RECOMMENDATION(S): 1: Routine screening mammogram BILATERAL in 1 year. [id number], [id number] 3342F, 7025F Dictating Physician: ??PAULETTE RIVERA MD Electronically Signed by: ??PAULETTE RIVERA MD Dic Date/Time: ??01/17/23 1008 Sign date/Time: ??01/17/23 1009 Procedure Note Paulette Rivera MD - 11/25/2023 [facility] Diagnostic Imaging Department [address] [place] [address] Patient: KARINA CLINTON Guy /Age/Sex: 1955 - 67 - F Unit#: [id number] Location/Status: [facility] Mnemonic/Ordering Site: [facility] Ordering Physician: LEISA CRAWFORD MD [facility] Screening Digital - 01/15/23805 EXAM: [facility] Screening Digital EXAM DATE AND TIME: 01/15/2023 8:07 AM HISTORY: Screening. Daughter had breast carcinoma at age 42. COMPARISON: 12/15/20, 12/11/19, 12/07/18 TECHNIQUE: CC and MLO views of both breasts were obtained using fullfield digital mammography. Bilateral digital breast tomosynthesis was performedin the MLO projection. Computer aided detection with Unirisxok 7.2-H andBrakeQuotes.com 3D 3.1 was employed. TISSUE DENSITY: a. The breasts are almost entirely fatty. FINDINGS: No suspicious masses, grouped microcalcifications, or areas ofarchitectural distortion are seen. Skin and vascular calcifications are again noted. IMPRESSION: Stable mammographic appearance of the breasts. No evidence of malignancyis seen. A negative mammogram in the presence of a clinically suspicious palpable abnormality does not preclude the possibility of malignancy or alter the indications for biopsy. BI-RADS: Category 2: Benign RECOMMENDATION(S): 1: Routine screening mammogram BILATERAL in 1 year. [id number], [id number] 3342F, 7025F Dictating Physician: PAULETTE RIVERA MD Electronically Signed by: PAULETTE RIVERA MD Dic Date/Time: 01/17/23 1008 Sign date/Time: 01/17/23 1009 us Leisa Crawford MD IMG BI PROCEDURES Final Resu lt * DXA BONE DENSITY STUDY 1+ SITS AXIAL SKEL (08/28/2021 10:24 AM EDT) Anatomical Region Laterality Modality Bone Densitometr y 06/16/2021 11:2 3 AM EDT Narrative 08/28/2021 4:03 PM EDT Clinical history: menopausal/postmenopausal disorder Scans of the lumbar spine and hips were performed on a [employer]well/[employer]etra Prodigy fan beam bone densitometer. ? Bone mineral density measurements and associated T and Z scores respectively are as follows: Lumbar Spine: L1-L2 BMD: 0.985 g/cm2 ? T-Score: 0.1 ? Z-Score: 1.8 Compared with the prior study dated 05/22/2015, the BMD reading has increased which is statistically significant Left Proximal Femur: Neck BMD: 0.710 g/cm2 ? T-Score: -1.3 ?? Z-Score: 0.4 Total BMD: 0.918 g/cm2 ? T-Score: -0.2 ?Z-Score: 1.1 Compared with the prior study the mean BMD reading in the total left hip has decreased which is not statistically significant Compared with standards for the young adult, lowest measured bone density places the patient in the W.H.O. osteopenic range. FRAX 10 year probability of major osteoporotic fracture:8.2% FRAX 10 year probability of hip fracture: 0.7% IMPRESSION: IMPRESSION: Osteopenia. The NOF guidelines recommend that FDA approved medical therapies be considered in postmenopausal women and men age >50 years with a: i. Hip or vertebral (clinical or morphometric) fracture ii. T score of < -2.5 at the spine or hip iii. 10 year fracture probability by FRAX of >3% for hip fracture, or >20% for major osteoporotic fracture PLEASE NOTE: ?? W.H.O. classification is based on lowest measured density at the spine, femoral neck, or total hip.This classification has prognostic significance when applied to post menopausal women and older men. 1) ??The World Health Organization defines low BMD as follows: ?T-score ? Normal ? at or > -1 Osteopenia ? < -1 and ??> - 2.5 Osteoporosis ? at or < -2.5 without fractures Established osteoporosis ? < -2.5 with fractures Procedure Note Lauren Marie MD - 10/12/2022 Clinical history: menopausal/postmenopausal disorder Scans of the lumbar spine and hips were performed on a Cladwell/adsquarefan beam bone densitometer. Bone mineral density measurements and associated T and Z scoresrespectively are as follows: Lumbar Spine: L1-L2 BMD: 0.985 g/cm2 T-Score: 0.1 Z-Score: 1.8 Compared with the prior study dated 05/22/2015, the BMD reading hasincreased which is statistically significant Left Proximal Femur: Neck BMD: 0.710 g/cm2 T-Score: -1.3 Z-Score: 0.4 Total BMD: 0.918 g/cm2 T-Score: -0.2 Z-Score: 1.1 Compared with the prior study the mean BMD reading in the total left hiphas decreased which is not statistically significant Compared with standards for the young adult, lowest measured bone densityplaces the patient in the W.H.O. osteopenic range. FRAX 10 year probability of major osteoporotic fracture:8.2% FRAX 10 year probability of hip fracture: 0.7% IMPRESSION: IMPRESSION: Osteopenia. The NOF guidelines recommend that FDA approved medical therapies beconsidered in postmenopausal women and men age >50 years with a: i. Hip or vertebral (clinical or morphometric) fracture ii. T score of < -2.5 at the spine or hip iii. 10 year fracture probability by FRAX of >3% for hip fracture, or >20%for major osteoporotic fracture PLEASE NOTE: W.H.O. classification is based on lowest measured density at the spine,femoral neck, or total hip.This classification has prognostic significance when applied to postmenopausal women and older men. 1) The World Health Organization defines low BMD as follows: T-score Normal at or > -1 Osteopenia < -1 and > -2.5 Osteoporosis at or < -2.5 withoutfractures Established osteoporosis < -2.5 with fractures Leisa Crawford MD IM DXA PROCEDURES Final Res ult * Colonoscopy (11/24/2017) [facility] Colonoscopy no interpretation , abstracted Anatomical Region Laterality Modality Other Historical Provider HEALTH MAINTENANCE Final Result * Hepatitis C Screening (07/27/2013) [facility] Hepatitis C Screening abstracted us Historical Provider HEALTH MAINTENANCE Final Result from Last 3 Months or Most Recently Relevant to Health Maintenance Insurance [employer] Care Teams 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
== END 2024-12-28 08:58 | disposition home or self-care (01) ==
LOC: HO.HOSX 08:57
DX: M79.641 Pain in right hand (principal); S63.612A Unspecified sprain of right middle finger, initial encounter
CPT/HCPCS: 73130; 99202

== ENCOUNTER 2024-12-28 13:02 | Outpatient (AMB) | payer OTHER, MEDICARE, SELFPAY ==
--- NOTE | 2024-12-28 13:18 | MHC.OFFVIS ---
Vital Signs 12/28/24 13:22 Height 5 ft 4 in Weight 190 lb BMI 32.6 Intake Visit Reasons: [employer]ING [employer]- right hand pain WC DOI 12/11/24 Intake Note: Karina is a 69 year old right hand dominant female who presents today as a new patient referred by [employer] for a right hand work related injury, DOI: 12/11/2024. Patient reports falling and injuring her 3rd right digit. 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 Seen with work connection who gave a patient a splint. Currently states she had throbbing pain, swollen and pain when squeezing and lifting. Denies numbness or tingling. Allergies naproxen [From Naprosyn] Adverse Reaction (Verified 01/02/25 08:53) GI bleed HPI HPI [employer] CR[employer]ING [employer]ARD- right hand pain WC DOI 12/11/24: Details: Karina is a 69 year old right hand dominant female who presents today as a new patient referred by [employer] for a right hand work related injury, DOI: 12/11/2024. Patient reports falling and injuring her 3rd right digit. 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 Seen with work connection who gave a patient a splint. Currently states she had throbbing pain, swollen and pain when squeezing and lifting. Denies numbness or tingling. 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 Neuro: Normal sensation of the tips of all digits of the right hand at this time Vascular: Cap refill brisk Pain: Tenderness to palpation about the dorsal MCP joint of the right middle finger ROM: Patient is able to make a closed fist and extend all digits of the right hand fully, but reports discomfort in both the PIP and MCP joints of the right middle finger when doing so Skin: No lacerations or abrasions. General: No ecchymosis, erythema, or evidence of infection. Psych: Appears grossly normal Affect normal Attitude cooperative Assessment & Plan Assessment & Plan (1) Sprain of right middle finger: Code(s): S63.612A - Unspecified sprain of right middle finger, initial encounter Category: Medical Plan 1. Sprain MCP and PIP joints of right middle finger Date of injury 12/11/2024 Patient is educated about this condition Patient is educated about the typical recovery course At this time, patient was educated she should continue with a previously scheduled occupational therapy appointment that she has on 01/04/25 Patient will also f/u next week with me w/AR in office to rule out any surgical indications Patient is amenable to this plan Orders: Orders XR hand RT min 3V 12/28/24 M79.641 - Pain in right hand Coding Level of Care Code New Pt Level 3 (63196) Diagnoses Sprain of right middle finger S63.612A
[2024-12-28 13:22] VITALS: BMI 32.6
--- OUTSIDE RECORDS SUMMARY | 2024-12-28 14:42 | XMS_ITS | Clinical Summary ---
Author Organization [facility] Address [address] [place] [address] Phone Care Team Providers Care Athletic Events Scorer Name Role Phone Isak Harris MD Primary Care Provider [phone] Allergies Active Allergy Reactions Criticality Noted Date Comments Adhesive Tape-Silicones 01/21/2016 Paper tape-red rash Cortisone Acetate 09/13/2008 Facial flushing Levofloxacin 06/24/2015 Naproxen Other Medium 07/27/2007 BLOOD IN STOOL Nsaids (Non-Steroidal Anti-Inflammatory Drug) GI intolerance 10/30/2019 Gastritis Vancomycin 01/21/2016 rash Medications carvediloL (COREG) 6.25 mg tablet TAKE 1 TABLET BY MOUTH TWICE A DAY WITH MEALS 4 Active cyclobenzaprin e (FLEXERIL) 5 mg tablet Take 1 Tablet [...] mouth 2 times daily for 360 days. 4 06/16/20 25 Active semaglutide (Wegovy) 0.25 mg/0.5 mL injection pen Inject 0.25 mg into the skin once a week. 4 Active predniSONE (DELTASONE) 20 mg tablet Take 60 mg PO daily for 3 days, then take 40 mg PO daily for 3 days, then 20 mg PO daily for 3 days, then stop 18 tablet 4 Active albuterol HFA (ProAir HFA) 90 mcg/actuation inhaler Inhale 2 puffs by mouth every 4 (four) hours if needed for wheezing or shortness of breath. 4 Active budesonide (PULMICORT) 180 mcg/actuation inhaler Inhale 1 puff by mouth 2 (two) times a day. Rinse mouth with water after use to reduce aftertaste and incidence of candidiasis. Do not swallow. 4 Active amLODIPine (NORVASC) 10 mg tablet Take 1 tablet (10 mg total) by mouth 1 (one) time each day. 90 tablet 1 5 Active traZODone (DESYREL) 50 mg tablet Take 1 tablet (50 mg total) by mouth at bedtime as needed for sleep. 90 tablet 1 5 Active mometasone (ELOCON) 0.1 % cream Apply topically 1 (one) time each day. 45 g 5 12/29/19 26 Active amLODIPine (NORVASC) 10 mg tablet Take 0.5 Tablets by mouth daily. 4 12/29/19 25 Discontinu ed(Reorder ) traZODone (DESYREL) 50 mg tablet TAKE 1 AND 1/2 TO 2 TABLETS BY MOUTH EVERY NIGHT AT BEDTIME NEEDED FOR SLEEP 4 12/29/19 25 Discontinu ed(Reorder ) Active Problems Problem Noted Date Diagnosed Date [...] Encounters Date Type Department Care Team Description 12/28/2024 10:30 AM EST Office Visit Adult Medicine [address] [address] Jenn Nguyen PA Gastroesophageal reflux disease, unspecified whether esophagitis present (Primary Dx); Essential hypertension; Hypothyroidism, unspecified type; Hyperlipidemia, unspecified hyperlipidemia type; Moderate persistent asthma with acute exacerbation; Prediabetes; Skin lesion; Rash and nonspecific skin eruption 10/25/2024 Telephone Bariatric Surgery [address] [place] [address] Cathy Baker PA Advice Only (Peer to Peer) from Last 3 Months Immunizations Name Administration Dates Next Due DTaP (Infanrix) 6wks to less than 7yo 10/24/2012 Hepatitis B (Uzqivwe-L-Nkdae , Recombivax HB-Adult) 19yo and older 02/18/2006,09/08/2005,08/05/2005 [...] care for your loved ones. For example, residential child care counselor or elderly care for an older adult? [...] Sign Reading Time Taken Comments Blood Pressure 134/78 12/28/2024 10:43 AM EST Pulse 72 12/28/2024 10:43 AM EST Temperature 35.9 ??C (96.6 ??F) 12/28/2024 10:[address] Respiratory Rate 16 09/18/2024 10:32 AM EST Oxygen Saturation 94% 12/28/2024 10:43 AM EST Inhaled Oxygen Concentration - - Weight 87 kg (191 lb 12.8 oz) 12/28/2024 10:43 A M EST Height 162.6 cm (5' 4.02 ) 12/28/2024 10:[address] Body Mass Index 32.91 12/28/2024 10:43 AM EST Plan of Treatment Upcoming Encounters Date Type Department Care Team (Late st Contact Info) Description 07/02/2025 10:00 AM EDT Office Visit Adult Medicine [address] [phone] Jenn Nguyen PA [address] [place] [phone] Health Maintenance Due Date Last Done Comments Hepatitis A Vaccines (1 of 2 - Risk 2-dose series) 1973 Zoster Vaccines (1 of 2) 2004 RSV Immunization Patients 60+ Years Old (1 - Risk 60-74 years 1-dose series) 2014 Falls Risk Assessment 10/01/2022 DTaP,Tdap,and Td Vaccines (4 - Td or Tdap) 01/05/2023 01/05/2013, 10/24/2012, 04/30/2005 COVID-19 Vaccine (4 - season) 2024 08/13/2021, 01/28/2021, 01/06/2021 Influenza Vaccine (#1) 2024 , 07/14/2020, 07/06/2019, Additional history exists Medicare Annual Wellness Visit 11/21/2024 11/21/2023 Breast Cancer Screening 01/17/2025 01/18/20 23, 12/15/2020, 12/11/2019, Additional history exists Hypertension/CHF/CAD Annual BMP Blood Test 02/06/2025 02/07/2024 Depression Screening 12/27/2025 12/27/2024, 11/21/19 Social Influencers of Health Screening 12/27/2025 12/27/2024 [...] Results * Annual BMP Blood Test (02/07/2024) Pathologist [facility] Annual BMP Blood Test abstracted Historical Provider HEALTH MAINTENANCE Final Result * (ABNORMAL) Lipid panel (02/07/2024) [facility] LDL/HDL Ratio 4 0 - 4 Triglycerides 174(A) 0 - 150 mg/dL Cholesterol 212(A) 0 - 200 mg/dL HDL 50 >=40 mg/dL LDL Cholesterol 128(A) 0 - 100 mg/dL Blood Venous blood specimen / Unknown Historical Provider LAB BLOOD ORDERABLES Renetta l Result * Depression Screening (11/21/2023) [facility] Depression Screening abstracted Historical Provider HEALTH MAINTENANCE Final Result * RAJ SCREENING DIGITAL (01/17/2023 10:09 AM EDT) Anatomical Region Laterality Modality Mammography 01/13/2023 10:0 6 AM EDT Narrative 01/17/2023 10:09 AM EDT [facility] Diagnostic Imaging Department [address] [place] [address] Patient: ??KARINA CLINTON ?/Age/Sex: 1955 - Unit#: ??[id number] ? Location/Status: ??SPDIMAM/REG CLI ? Mnemonic/Ordering Site: ??DIGSC/SPMAM Ordering Physician: ??LEISA CRAWFORD MD Raj Screening Digital - 01/15/23 - 805 EXAM: Raj Screening Digital EXAM DATE AND TIME: 01/15/2023 8:07 AM HISTORY: ??Screening. Daughter had breast carcinoma at age 42. COMPARISON: ??12/15/20, 12/11/19, 12/07/18 TECHNIQUE: CC and MLO views of both breasts were obtained using full field digital mammography. Bilateral digital breast tomosynthesis was performed in the MLO projection. Computer aided detection with [employer] 7.2-H and Alticast 3D 3.1 was employed. TISSUE DENSITY: a. [...] Routine screening mammogram BILATERAL in 1 year. [id number], [id number] 3342F, 7025F Dictating Physician: ??PAULETTE RIVERA MD Electronically Signed by: ??PAULETTE RIVERA MD Dic Date/Time: ??01/17/23 1008 Sign date/Time: ??01/17/23 1009 Procedure Note Paulette Rivera MD - 11/25/2023 [facility] Diagnostic Imaging Department [address] [place] [address] Patient: KARINA CLINTON /Age/Sex: 1955 - 67 - F Unit#: [id number] Location/Status: SPDIMAM/REG CLI Mnemonic/Ordering Site: [facility] Ordering Physician: LEISA CRAWFORD MD [facility] Screening Digital - 01/15/23 - 805 EXAM: [facility] Screening Digital EXAM DATE AND TIME: 01/15/2023 8:07 AM HISTORY: Screening. Daughter had breast carcinoma at age 42. COMPARISON: 12/15/20, 12/11/19, 12/07/18 TECHNIQUE: CC and MLO views of both breasts were obtained using fullfield digital mammography. Bilateral digital breast tomosynthesis was performedin the MLO projection. Computer aided detection with [employer] 7.2-H and[employer]ast 3D 3.1 was employed. TISSUE DENSITY: a. [...] Routine screening mammogram BILATERAL in 1 year. [id number], [id number] 3342F, 7010F Dictating Physician: PAULETTE RIVERA MD Electronically Signed by: PAULETTE RIVERA MD Dic Date/Time: 01/17/23 1008 Sign date/Time: 01/17/23 1009 us Leisa Crawford MD IMG BI PROCEDURES Final Resu lt * DXA BONE DENSITY STUDY 1+ CLEMENTINA DOUGLAS (08/28/2021 10:24 AM EDT) Anatomical Region Laterality Modality Bone Densitometr y 06/16/2021 11:2 3 AM EDT Narrative 08/28/2021 4:03 PM EDT Clinical history: menopausal/postmenopausal disorder Scans of the lumbar spine and hips were performed on a [employer]/In Flow fan beam bone densitometer. ? Bone mineral [...] spine and hips were performed on a [employer]/In Flowfan beam bone densitometer. Bone mineral density measurements [...] < -2.5 with fractures Leisa Crawford MD IMG DXA PROCEDURES Final Res ult * Colonoscopy (11/24/2017) [facility] Colonoscopy no interpretation , abstracted Anatomical Region Laterality Modality Other Historical Provider HEALTH MAINTENANCE Final Result * Hepatitis C Screening (07/27/2013) [facility] Hepatitis C Screening abstracted Historical Provider HEALTH MAINTENANCE Final Result from Last 3 Months or Most Recently Relevant to Health Maintenance Insurance [employer] Care Teams Athletic Events Scorer Relationship Specialty Start Date End Date Isak Harris MD [address] [place] [address] [phone] (work) PCP - General Internal Medicine 05/03/20
--- OUTSIDE RECORDS SUMMARY | 2024-12-28 14:42 | XMS_ITS | Encounter Summary ---
Author Organization [facility] Address [address] [place] [address] Care Team Providers Care Customs And Border Protection Officer Name Role Phone Isak Harrsi MD Primary Care Provider [phone] Reason for Referral * Consultation (Routine) - Pending Review Specialty Diagnoses / Procedures Referred By Burke bradley Referred To Contact Dermatology Diagnoses Skin lesion Jenn Nguyen PA [address] [place] [address] Phone: tel: fax: Referral ID Status Reason Start Date Expiration Date Visits Requested Visits Authorized [id number] Pending Review Specialty Services Required 12/28/2024 12/28/2025 1 1 Reason for Visit * Reason Comments med review Encounter Details Date Type Department Care Team (Late st Contact Info) Description 12/28/2024 10:30 AM EST Office Visit Adult Medicine [address] [address] Jenn Nguyen PA [address] [place] [address] Gastroesophageal reflux disease, unspecified whether esophagitis present (Primary Dx); Essential hypertension; Hypothyroidism, unspecified type; Hyperlipidemia, unspecified hyperlipidemia type; Moderate persistent asthma with acute exacerbation; Prediabetes; Skin lesion; Rash and nonspecific skin eruption Social History Tobacco Use Types Packs/Day Years [...] for your loved ones. For example, child attendant or elderly care for an older adult? [...] on file Sexual Orientation Not on file documented as of this encounter Last Filed Vital Signs Vital Sign Reading Time Taken Comments Blood Pressure 134/78 12/28/2024 10:43 AM EST Pulse 72 12/28/2024 10:43 AM EST Temperature 35.9 ??C (96.6 ??F) 12/28/2024 10:[address] Respiratory Rate - - Oxygen Saturation 94% 12/28/2024 10:43 AM EST Inhaled Oxygen Concentration - - Weight 87 kg (191 lb 12.8 oz) 12/28/2024 10:43 A M EST Height 162.6 cm (5' 4.02 ) 12/28/2024 10:[address] Body Mass Index 32.91 12/28/2024 10:43 AM EST documented in this encounter Ordered Prescriptions Prescription Sig Dispense Quantity Refills Last Filled Start Date End Date mometasone (ELOCON) 0.1 % cream Apply topically 1 (one) time each day. 45 g 12/28/2024 traZODone (DESYREL) 50 mg tablet Take 1 tablet (50 mg total) by mouth at bedtime as needed for sleep. 90 tablet 1 12/28/2024 amLODIPine (NORVASC) 10 mg tablet Take 1 tablet (10 mg total) by mouth 1 (one) time each day. 90 tablet 1 12/28/2024 documented in this encounter Progress Notes * CONI Magallon - 12/28/2024 10:30 AM EST CHIEF COMPLAINT: med review IDENTIFIER: Karina Clinton is a 69 y.o. old female. HPI: Patient is a 69-year-old female who presents to the office today for medication review. Hypertension: Blood pressure in the office today is 134/78. The patient is on carvedilol 6.25 mg BID and amlodipine 10 mg daily. Hyperlipidemia: Lipid panel from 01/2024 shows LDL at 128. Patient is not on statin. Hypothyroidism: TSH from 01/2024 was abnormal at 10.49. Patient is supposed to be on levothyroxine 100 mcg daily. She self discontinued medication on her own months ago, states no one was monitoring her labs. GERD: Patient with acid reflux. She is on omeprazole 40 mg BID. Asthma: Patient with asthma. She is on pulmicort daily and albuterol as needed. Symptoms have been stable. Prediabetes: Hemoglobin A1c from 01/2024 was 5.8 consistent with prediabetes. She reports eating food such as pork chops, chicken, fish, fruit, vegetables, brown rice. Patient is following with weightmanagement. Wegovy was sent in however was declined by her insurance. Peer to peer was recommended.Patient expresses frustration due to not hearing back from weight management regarding the peer to peer, states she has called and messaged them months ago. Rash: Patient reports having itchy rash on her upper extremities which she self treated with mometasone cream (received this from a friend). Her rash resolved, however did recur. She is requesting tohave prescription for mometasone. Patient notes she is out of work due to slip and fall on ice which occurred at work. She is following with work connections and is being treated at [facility]. ROS: GENERAL: No malaise, significant weight loss or fever RESPIRATORY: No cough, wheezing or shortness of breath CARDIOVASCULAR: No chest pain, leg swelling or palpitations GI: No abdominal pain, hematochezia, melena : No dysuria, oliguria, polyuria, hematuria, flank pain MUSCULOSKELETAL: No joint pain or swelling, back pain, or muscle pain. SKIN: No lesions, rash or itching NEURO: No persistent headache, syncope, seizures, weakness or numbness PAST MEDICAL HISTORY: Patient Active Problem List Diagnosis Date Noted Class 1 obesity without serious comorbidity with body mass index (BMI) of 32.0 to 32.9 in adult 08/14/2024 COVID-19 08/14/2024 Dyspnea on exertion 06/17/2023 Bicornuate uterus 04/19/2022 Lymphadenopathy 04/19/2022 Osteopenia 04/19/2022 Urinary incontinence 06/16/2021 GERD (gastroesophageal reflux disease) 03/14/2020 Essential hypertension 11/11/2019 Cyst of ovary 11/06/2019 Hepatic steatosis 11/06/2019 Insomnia 09/06/2019 Hyperlipidemia 02/27/2018 Vitamin D deficiency 06/11/2015 Asthma 05/04/2015 Back pain 01/01/2011 Shoulder pain 01/01/2011 Lung mass 06/23/2008 Knee pain 2007 Hemorrhage of gastrointestinal tract 06/30/2007 Hypothyroidism 02/18/2006 Other specified nutritional anemias 01/28/2006 Past Surgical History: Procedure Laterality Date BACK SURGERY PROCEDURE:BACK SURGERY;COMMENT:L4-5,L3-4' L2 SECTION PROCEDURE: SECTION EYE SURGERY PROCEDURE:EYE SURGERY HERNIA REPAIR PROCEDURE:HERNIA REPAIR JOINT REPLACEMENT Bilateral PROCEDURE:JOINT REPLACEMENT;COMMENT:knee ROTATOR CUFF REPAIR Right PROCEDURE:ROTATOR CUFF REPAIR TONSILLECTOMY PROCEDURE:TONSILLECTOMY TUBAL LIGATION PROCEDURE:TUBAL LIGATION SOCIAL HISTORY: Social History Tobacco Use Smoking status: Never Smokeless tobacco: Never Substance Use Topics Alcohol use: Never FAMILY HISTORY: No family history on file. No family status information on file. MEDICATIONS DISCONTINUED/REORDERED: Medications Discontinued During This Encounter Medication Reason amLODIPine (NORVASC) 10 mg tablet Reorder traZODone (DESYREL) 50 mg tablet Reorder ACTIVE MEDICATIONS: Outpatient Medications Marked as Taking for the 12/28/24 encounter (Office Visit) with CONI Magallon Medication Sig Dispense Refill amLODIPine (NORVASC) 10 mg tablet Take 1 tablet (10 mg total) by mouth 1 (one) time each day. 90 tablet 1 levothyroxine (SYNTHROID, LEVOTHROID) 100 mcg tablet Take 1 Tablet by mouth daily for 360 days. meloxicam (MOBIC) 7.5 mg tablet Take 1 Tablet by mouth daily. omeprazole (PriLOSEC) [address] capsule Take 1 Capsule by mouth 2 times daily for 360 days. semaglutide (Wegovy) 0.25 mg/0.5 mL injection pen Inject 0.25 mg into the skin once a week. traZODone (DESYREL) 50 mg tablet Take 1 tablet (50 mg total) by mouth at bedtime as needed for sleep. 90 tablet 1 [DISCONTINUED] amLODIPine (NORVASC) 10 mg tablet Take 0.5 Tablets by mouth daily. [DISCONTINUED] traZODone (DESYREL) 50 mg tablet TAKE 1 AND 1/2 TO 2 TABLETS BY MOUTH EVERY NIGHT ATBEDTIME NEEDED FOR SLEEP ALLERGIES: Allergies Allergen Reactions Naproxen Other BLOOD IN STOOL Adhesive Tape-Silicones Paper tape-red rash Cortisone Acetate Facial flushing Levofloxacin Nsaids (Non-Steroidal Anti-Inflammatory Drug) GI intolerance Gastritis Vancomycin rash PHYSICAL EXAM: Visit Vitals BP 134/78 (BP Location: Left arm, Patient Position: Sitting, BP Cuff Size: Large adult long) Pulse 72 Temp 35.9 ??C (96.6 ??F) (Temporal) Ht 1.626 m (64.02 ) Wt 87 kg (191 lb 12.8 oz) SpO2 94% BMI 32.91 kg/m?? Smoking Status Never BSA 1.92 m?? APPEARANCE: Alert and in no acute distress HEART: RRR with normal S1 and S2, no murmurs, no gallops LUNG: clear to auscultation, no wheezing, rales, or rhonchi. Able to talk in full complete sentences NEURO: Awake, alert and oriented x 3. No focal neurological deficits SKIN: Skin color, texture, turgor normal. No rashes. Flat, brown macule on side of right hip which appears benign LABS: Hemoglobin A1C Date Value Ref Range Status 02/07/2024 5.8 <=6.5 % Final Lab Results Component Value Date CHOL 212 (A) 02/07/2024 TRIG 174 (A) 02/07/2024 HDL 50 02/07/2024 No results found for: GLUCOSE , CALCIUM , NA , K , CO2 , CL , BUN , CREATININE No results found for: TSH IMPRESSION: 1. Gastroesophageal reflux disease, unspecified whether esophagitis present 2. Essential hypertension 3. Hypothyroidism, unspecified type 4. Hyperlipidemia, unspecified hyperlipidemia type 5. Moderate persistent asthma with acute exacerbation 6. Prediabetes 7. Skin lesion 8. Rash and nonspecific skin eruption PLAN: Hypertension: Blood pressure controlled. Continue carvedilol 6.25 mg BID and amlodipine 10 mg daily. Hyperlipidemia: Lipid panel ordered. Hypothyroidism: Patient self discontinued levothyroxine. Will update TSH and provide further recommendation. GERD: Managed on omeprazole 40 mg BID. Asthma: Controlled. Continue current regimen. Prediabetes: Will update A1c. Apologized to patient and recommended following up with weight management for further recommendation to see whether an alternative medication can be sent to pharmacy. Rash/Lesion: Patient does not have current rash, however is insisting to have mometasone on hand for future flares. Advised patient on spare use of steroid cream and discussed potential risks. Prescription sent to pharmacy. Patient also with brown, flat macule on right hip which appears benign. Referral to dermatology placed. Follow up recommended in 6 months. All questions and concerns were addressed. Karina Tovar Mary Beth verbalizes understanding and agrees with this treatment plan. Patient was reminded to call or return to the office if any new or existing problems arise. Orders Placed This Encounter Procedures Basic metabolic panel Lipid panel with reflex to direct LDL Hemoglobin A1c Thyroid stimulating hormone with reflex to free t4 and free t3 Ambulatory referral to Dermatology AMB REFERRAL TO DERMATOLOGY CONI Magallon on 12/28/2024 at 1:49 PM EST Today's documentation was made using voice recognition software.This note may contain grammatical errors secondary to this software. documented in this encounter Plan of Treatment Upcoming Encounters Date Type Department Care Team (Late st Contact Info) Description 07/02/2025 10:00 AM EDT Office Visit Adult Medicine [address] [phone] Jenn Nguyen PA [address] [place] [address] Pending Results Name Type Priority Associated Diagnoses Date /Time Basic metabolic panel Lab Routine Essential hypertension 12/28/2024 11:37 AM EST Lipid panel with reflex to direct LDL Lab Routine Hyperlipidemia, unspecified hyperlipidemia type 12/28/2024 11:37 AM EST Hemoglobin A1c Lab Routine Prediabetes 12/28/2024 11:37 AM EST Thyroid stimulating hormone with reflex to free t4 and free t3 Lab Routine Hypothyroidism, unspecified type 12/28/2024 11:37 AM EST Scheduled Orders Name Type Priority Associated Diagnoses Orde r Schedule Basic metabolic panel Lab Routine Essential hypertension 1 Occurrences starting 12/28/2024 until 03/30/2025 Lipid panel with reflex to direct LDL Lab Routine Hyperlipidemia, unspecified hyperlipidemia type 1 Occurrences starting 12/28/2024 until 03/30/2025 Hemoglobin A1c Lab Routine Prediabetes 1 Occurrences starting 12/28/2024 until 03/30/2025 Thyroid stimulating hormone with reflex to free t4 and free t3 Lab Routine Hypothyroidism, unspecified type 1 Occurrences starting 12/28/2024 until 03/30/2025 Scheduled Referrals Name Type Priority Associated Diagnoses Order Schedule Ambulatory referral to Dermatology Outpatient Referral Routine Skin lesion 1 Occurrences starting 12/28/2024 until 12/28/2025 documented as of this encounter Visit Diagnoses Diagnosis Gastroesophageal reflux disease, unspecified whether esophagitis present- Primary Essential hypertension Unspecified essential hypertension Hypothyroidism, unspecified type Hyperlipidemia, unspecified hyperlipidemia type Moderate persistent asthma with acute exacerbation Prediabetes Other abnormal glucose Skin lesion Unspecified disorder of skin and subcutaneous tissue Rash and nonspecific skin eruption Rash and other nonspecific skin eruption documented in this encounter Discontinued Medications Medication Sig Discontinue Reason Start Date End Da te amLODIPine (NORVASC) 10 mg tablet Take 0.5 Tablets by mouth daily. Reorder 06/21/2024 12/28/2024 traZODone (DESYREL) 50 mg tablet TAKE 1 AND 1/2 TO 2 TABLETS BY MOUTH EVERY NIGHT AT BEDTIME NEEDED FOR SLEEP Reorder 05/08/2024 12/28/2024 documented as of this encounter Additional Health Concerns Assessment Noted Time PHQ-9 Depression Total Score: 7 12/28/19 25 12:17 PM EST documented as of this encounter Care Teams Customs And Border Protection Officer Relationship Specialty Start Date End Date Isak Harris MD [address] [place] [id number] PCP - General Internal Medicine 05/03/20 documented as of this encounter
--- OUTSIDE RECORDS SUMMARY | 2024-12-28 14:42 | XMS_ITS | Clinical Summary ---
Author Organization [facility] Address [address] [place] [address] Care Team Providers Care Civil Manager Name Role Phone Nacho Georges MD Primary Care Provider [phone] Allergies Active Allergy Reactions Criticality Noted Date [...] age to complete this topic Care Teams Civil Manager Relationship Specialty Start Date End Date Nacho Georges MD [address] [place] [phone] PCP - General Internal Medicine 04/05/18
== END 2024-12-28 13:52 | disposition home or self-care (01) ==
PROVIDERS: PCP Internal Medicine
DX: S63.612A Unspecified sprain of right middle finger, initial encounter (principal); Z04.2 Encounter for examination and observation following work accident
CPT/HCPCS: 99203

== ENCOUNTER → 2024-12-28 13:13 | Outpatient (BNV) | payer OTHER, MEDICARE, SELFPAY | PROVIDERS: Visit Provider Radiology Diagnostic Radiology | DX: M79.641 Pain in right hand (principal); Z04.2 Encounter for examination and observation following work accident | CPT/HCPCS: 73130 ==

== ENCOUNTER → 2025-01-01 08:08 | Outpatient (BNVA) | payer OTHER, SELFPAY | PROVIDERS: Visit Provider Physician Assistant Medical | DX: S60.211D Contusion of right wrist, subsequent encounter (principal); S80.02XD Contusion of left knee, subsequent encounter; S80.01XD Contusion of right knee, subsequent encounter; W01.0XXD Fall on same level from slipping, tripping and stumbling without subsequent striking against object, subsequent encounter; M25.562 Pain in left knee | CPT/HCPCS: 99213 ==

== ENCOUNTER 2025-01-02 08:47 | Outpatient (AMB) | payer OTHER, MEDICARE, SELFPAY ==
--- NOTE | 2025-01-02 08:49 | A.OFFVIS_ITS ---
Intake Visit Reasons: O/V rt MF pain/re-eval with AR Intake Note: Karina is a 69 year old right hand dominant female who presents today for follow up status post right hand work-related injury, DOI: 12/11/2024. Patient reports that she is having continued pain and swelling at the base of the 1st joint. She occasionally gets a sharp pain the finger and up the hand. She noticed that the middle finger is colder in comparison to her other fingers. Denies numbness and tinlging. She was seen at work connection yesterday and is scheduled to return there in 2 weeks. Allergies naproxen [From Naprosyn] Adverse Reaction (Verified 01/02/25 08:53) GI bleed HPI HPI O/V rt MF pain/re-eval with AR : Details: Karina is a 69 year old right hand dominant female who presents today for follow up status post right hand work-related injury, DOI: 12/11/2024. Patient reports that she is having continued pain and swelling at the base of the 1st joint. She occasionally gets a sharp pain the finger and up the hand. She noticed that the middle finger is colder in comparison to her other fingers. Denies numbness and tinlging. She was seen at work connection yesterday and is scheduled to return there in 2 weeks. 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 Neuro: Normal sensation of the tips of all digits of the right hand at this time Vascular: Cap refill brisk Pain: Tenderness to palpation about the dorsal MCP joint of the right middle finger ROM: Patient is able to make a closed fist and extend all digits of the right hand fully, but reports discomfort in both the PIP and MCP joints of the right middle finger when doing so Skin: No lacerations or abrasions. General: No ecchymosis, erythema, or evidence of infection. Psych: Appears grossly normal Affect normal Attitude cooperative Assessment & Plan Assessment & Plan (1) Sprain of right middle finger: Code(s): S63.612A - Unspecified sprain of right middle finger, initial encounter Category: Medical Plan 1. Sprain MCP and PIP joints of right middle finger Date of injury 12/11/2024 Patient is educated about this condition Patient is educated about the typical recovery course At this time, patient was educated she should continue with a previously scheduled occupational therapy appointment that she has on Tuesday, and should discontinue any splinting Patient is educated she can estela tape the middle and ring fingers together If patient is still bothered by the symptoms in 3-4 weeks, she should call us for reassessment Patient was amenable to this plan Pole of occupational therapy should be return to full function in to be able to return to work as quickly as possible Coding Level of Care Code Est Pt Level 3 (26946) Diagnoses Sprain of right middle finger S63.612A
--- OUTSIDE RECORDS SUMMARY | 2025-01-02 09:19 | XMS_ITS | Encounter Summary ---
Author Organization [facility] Address [address] [place] [address] Care Team Providers Care Farmworker [employer] Name Role Phone Isak Harris MD Primary Care Provider [phone] Reason for Referral * Consultation (Routine) - Pending Review Specialty Diagnoses / Procedures Referred By Burke bradley Referred To Contact Dermatology Diagnoses Skin lesion Jenn Nguyen PA [address] [place] [address] Phone: tel: fax: Referral ID Status Reason Start Date Expiration Date Visits Requested Visits Authorized [id number] Pending Review Specialty Services Required 12/28/2024 12/28/2025 1 1 Reason for Visit * Reason Comments med review Encounter Details Date Type Department Care Team (Late st Contact Info) Description 12/28/2024 10:30 AM EST Office Visit Adult Medicine [address] [address] Jenn Nguyen PA [address] [place] [address] Gastroesophageal reflux disease, unspecified whether esophagitis present [...] for your loved ones. For example, child development teacher or elderly care for an older adult? [...] AM EST CHIEF COMPLAINT: med review IDENTIFIER: Karnia Clinton is a 69 y.o. old female. [...] work connections and is being treated at [facility]. ROS: GENERAL: No malaise, significant weight [...] All questions and concerns were addressed. Karina Clinton verbalizes understanding and agrees with this treatment [...] 10:00 AM EDT Office Visit Adult Medicine [address] [address] Jenn Nguyen PA [address] [place] [address] Scheduled Referrals Name Type Priority Associated Diagnoses Order Schedule Ambulatory referral to Dermatology Outpatient Referral Routine Skin lesion 1 Occurrences starting 12/28/2024 until 12/28/2025 documented as of this encounter Results * (ABNORMAL) Thyroid stimulating hormone with reflex to free t4 and free t3 (12/28/2024 11:37 AM EST) TSH 12.96(H) 0.40 - 4.00 mcIU/mL LAB CHEMISTRY METHOD 12/28/2024 6:06 PM EST [facility] Blood Venous blood specimen / Unknown Venipuncture / Unknown 12/28/2024 11:37 AM EST 12/28/2024 11:37 AM EST us Jenn NEWBERRY LAB BLOOD ORDERABLES Fi nal Result [facility] [address] [place] [address], [place] [phone] * Hemoglobin A1c (12/28/2024 11:37 AM EST) [facility] Hemoglobin A1C 6.0 <6.5 % LAB CHEMISTRY METHOD 12/28/2024 10:[address] [facility] Mean Bld Glu Estim. 126 mg/dL LAB CHEMISTRY METHOD 12/28/2024 10:[address] [facility] Blood Venous blood specimen / Unknown Venipuncture / Unknown 12/28/2024 11:37 AM EST 12/28/2024 11:37 AM EST Jenn NEWBERRY LAB BLOOD ORDERABLES Fi nal Result Performing Organization Address [facility]/ZIP Co de Phone Number [facility] [address] [place] [address], [place] [phone] * (ABNORMAL) Lipid panel with reflex to direct LDL (12/28/2024 11:37 AM EST) [facility] Cholesterol 203(H) 0 - 200 mg/dL LAB CHEMISTRY METHOD 12/28/2024 6:[address] [facility] Triglycerides 233(H) 0 - 150 mg/dL LAB CHEMISTRY METHOD 12/28/2024 6:[address] [facility] HDL 49 >=40 mg/dL LAB CHEMISTRY METHOD 12/28/2024 6:[address] [facility] LDL Calculated 107(H) 0 - 100 mg/dL LAB CHEMISTRY METHOD 12/28/2024 6:[address] [facility] VLDL Cholesterol Sam 46.6 mg/dL LAB CHEMISTRY METHOD 12/28/2024 6:[address] [facility] Non HDL Chol. (LDL+VLDL) 154(H) <145 mg/dL LAB CHEMISTRY METHOD 12/28/2024 6:[address] [facility] Chol/HDL Ratio 4.1 0.0 - 4.4 LAB CHEMISTRY METHOD 12/28/2024 6:[address] [facility] Blood Venous blood specimen / Unknown Venipuncture / Unknown 12/28/2024 11:37 AM EST 12/28/2024 11:37 AM EST Jenn NEWBERRY LAB BLOOD ORDERABLES Fi nal Result [facility] [address] [place] [address], * (ABNORMAL) Basic metabolic panel (12/28/2024 11:37 AM EST) Sodium 139 133 - 145 mmol/L LAB CHEMISTRY METHOD 12/28/2024 6:[address] [facility] Potassium 5.2 3.5 - 5.5 mmol/L LAB CHEMISTRY METHOD 12/28/2024 6:[address] [facility] Chloride 107 96 - 110 mmol/L LAB CHEMISTRY METHOD 12/28/2024 6:[address] [facility] CO2 29 21 - 32 mmol/L LAB CHEMISTRY METHOD 12/28/2024 6:[address] [facility] Anion Gap 3 3 - 11 LAB CHEMISTRY METHOD 12/28/2024 6:[address] [facility] Glucose 105(H) 70 - 100 mg/dL LAB CHEMISTRY METHOD 12/28/2024 6:[address] [facility] BUN 13 5 - 25 mg/dL LAB CHEMISTRY METHOD 12/28/2024 6:[address] [facility] Creatinine 0.86 0.50 - 1.10 mg/dL LAB CHEMISTRY METHOD 12/28/2024 6:[address] [facility] eGFR 73 >=60 mL/min/1. 73m2 LAB CHEMISTRY METHOD 12/28/2024 6:04 PM EST [facility] Comment:Calculation based on the??Chronic Kidney Disease Epidemiology Collaboration (CKD-EPI) equation refit??without adjustment for race. BUN/Creatinine Ratio 15.1 LAB CHEMISTRY METHOD 12/28/2024 6:04 PM EST [facility] Calcium 10.1 8.5 - 10.5 mg/dL LAB CHEMISTRY METHOD 12/28/2024 6:04 PM EST [facility] Blood Venous blood specimen / Unknown Venipuncture / Unknown 12/28/2024 11:37 AM EST 12/28/2024 11:37 AM EST Jenn NEWBERRY LAB BLOOD ORDERABLES Fi nal Result [facility] [address] [place] [address], documented in this encounter Visit Diagnoses Diagnosis Gastroesophageal reflux [...] documented as of this encounter Care Teams Farmworker [employer] Relationship Specialty Start Date End Date Isak Harris MD [address] [place] [phone] PCP - General Internal Medicine 05/03/20 documented as of this encounter
--- OUTSIDE RECORDS SUMMARY | 2025-01-02 09:19 | XMS_ITS | Clinical Summary ---
Author Organization [facility] Address [address] [place] [address] Care Team Providers Care Operating Room Aide Name Role Phone Nacho Georges MD Primary Care Provider [phone] Allergies Active Allergy Reactions Criticality Noted Date [...] age to complete this topic Care Teams Operating Room Aide Relationship Specialty Start Date End Date Nacho Georges MD [address] [place] [phone] PCP - General Internal Medicine 04/05/18
--- OUTSIDE RECORDS SUMMARY | 2025-01-02 09:19 | XMS_ITS | Clinical Summary ---
Author Organization [facility] Address [address] [place] [address] Phone Care Team Providers Care Shed Workers Supervisor Name Role Phone Isak Harris MD Primary Care Provider [phone] Allergies Active Allergy Reactions Criticality Noted Date [...] 10:30 AM EST Office Visit Adult Medicine [address] [phone] Jenn Nguyen PA Gastroesophageal reflux disease, unspecified whether esophagitis present (Primary Dx); Essential hypertension; Hypothyroidism, unspecified type; Hyperlipidemia, unspecified hyperlipidemia type; Moderate persistent asthma with acute exacerbation; Prediabetes; Skin lesion; Rash and nonspecific skin eruption 10/25/2024 Telephone Bariatric Surgery [address] [place] [address] Cathy Baker PA Advice Only (Peer to Peer) from Last 3 Months Immunizations Name Administration Dates Next Due DTaP (Infanrix) 6wks to less than 7yo 10/24/2012 Hepatitis B (Dujtfar-K-Mozdg , Recombivax HB-Adult) 19yo and older 02/18/2006,09/08/2005,08/05/2005 [...] care for your loved ones. For example, early childhood worker or elderly care for an older adult? [...] 10:00 AM EDT Office Visit Adult Medicine [address] [phone] Jenn Nguyen PA [address] [place] [id number] Health Maintenance Due Date Last Done Comments Hepatitis A Vaccines (1 of 2 - Risk 2-dose series) 1973 Zoster Vaccines (1 of 2) 2004 RSV Immunization Patients 60+ Years Old (1 - Risk 60-74 years 1-dose series) 2014 DTaP,Tdap,and Td Vaccines (4 - Td or Tdap) 01/05/2023 01/05/2013, 10/24/2012, 04/30/2005 COVID-19 Vaccine ( - season) 2024 08/13/2021, 01/28/2021, 01/06/2021 Influenza Vaccine (#1) 2024 , 07/14/2020, 07/06/2019, Additional history exists Medicare Annual Wellness Visit 11/21/2024 11/21/2023 Breast Cancer Screening 01/17/2025 01/18/20 23, 12/15/2020, 12/11/2019, Additional history exists Depression Screening 12/27/2025 12/27/2024, 11/21/19 24 Social Influencers of Health Screening 12/27/2025 12/27/2024 Falls Risk Assessment 12/28/2025 12/28/2024 Hypertension/CHF/CAD Annual BMP Blood Test 12/28/2025 12/28/2024, 02/07/2024 Colorectal Cancer Screening: Colonoscopy 11/24/2027 11/24/2017 Cholesterol Screening (Lipid Panel) 12/28/2029 12/28/2024, 02/07/2024 Osteoporosis Screening (Bone Density Screening) 08/28/2031 [...] Procedure Name Priority Date/Time Associated Diagnosis Comments TRIIODOTHYRONINE FREE Routine 12/28/2024 11:37 AM EST Hypothyroidism, unspecified type FREE THYROXINE WITH REFLEX TO FREE TRIIODOTHYRONINE Routine 12/28/2024 11:37 AM EST Hypothyroidism, unspecified type BASIC METABOLIC PANEL Routine 12/28/2024 11:37 AM EST Essential hypertension LIPID PANEL WITH REFLEX TO DIRECT LDL Routine 12/28/2024 11:37 AM EST Hyperlipidemia, unspecified hyperlipidemia type HEMOGLOBIN A1C Routine 12/28/2024 11:37 AM EST Prediabetes THYROID STIMULATING HORMONE WITH REFLEX TO FREE T4 AND FREE T3 Routine 12/28/2024 11:37 AM EST Hypothyroidism, unspecified type DEPRESSION SCREENING Routine 11/21/2023 RAJ SCREENING DIGITAL Routine 01/17/2023 10:09 AM EDT Encounter for screening mammogram for malignant neoplasm of breast DXA BONE DENSITY STUDY 1+ SITS AXIAL SKEL Routine 08/28/2021 10:24 AM EDT Unspecified menopausal and perimenopausal disorder COLONOSCOPY Routine 11/24/2017 HEPATITIS C SCREENING Routine 07/27/2013 from Last 3 Months or Most Recently Relevant to Health Maintenance Results * (ABNORMAL) Thyroid stimulating hormone with reflex to free t4 and free t3 (12/28/2024 11:37 AM EST) TSH 12.96(H) 0.40 - 4.00 mcIU/mL LAB CHEMISTRY METHOD 12/28/2024 6:06 PM EST [facility] Blood Venous blood specimen / Unknown Venipuncture / Unknown 12/28/2024 11:37 AM EST 12/28/2024 11:37 AM EST Jenn NEWBERRY LAB BLOOD ORDERABLES Fi nal Result [facility] [address] [place] [address], * Free thyroxine with reflex to free triiodothyronine (12/28/2024 11:37 AM EST) Free T4 1.07 0.70 - 1.80 ng/dL LAB CHEMISTRY METHOD 12/28/2024 9:20 PM EST [facility] Blood Venous blood specimen / Unknown Venipuncture / Unknown 12/28/2024 11:37 AM EST 12/28/2024 11:37 AM EST Jenn NEWBERRY LAB BLOOD ORDERABLES Fi nal Result Performing Organization Address City/[facility]/ZIP Co de Phone Number [facility] [address] [place] [address], * (ABNORMAL) Lipid panel with reflex to direct LDL (12/28/2024 11:37 AM EST) Cholesterol 203(H) 0 - 200 mg/dL LAB CHEMISTRY METHOD 12/28/2024 6:05 PM [facility] Triglycerides 233(H) 0 - 150 mg/dL LAB CHEMISTRY METHOD 12/28/2024 6:05 PM [facility] HDL 49 >=40 mg/dL LAB CHEMISTRY METHOD 12/28/2024 6:05 PM [facility] LDL Calculated 107(H) 0 - 100 mg/dL LAB CHEMISTRY METHOD 12/28/2024 6:05 PM [facility] VLDL Cholesterol Sam 46.6 mg/dL LAB CHEMISTRY METHOD 12/28/2024 6:05 PM [facility] Non HDL Chol. (LDL+VLDL) 154(H) <145 mg/dL LAB CHEMISTRY METHOD 12/28/2024 6:05 PM [facility] Chol/HDL Ratio 4.1 0.0 - 4.4 LAB CHEMISTRY METHOD 12/28/2024 6:05 PM [facility] Blood Venous blood specimen / Unknown Venipuncture / Unknown 12/28/2024 11:37 AM EST 12/28/2024 11:37 AM EST Jenn NEWBERRY LAB BLOOD ORDERABLES Fi nal Result [facility] [address] [place] [address], * Triiodothyronine free (12/28/2024 11:37 AM EST) T3, Free 278 230 - 420 pcg/dL LAB CHEMISTRY METHOD 12/28/2024 9:47 PM EST [facility] Blood Venous blood specimen / Unknown Venipuncture / Unknown 12/28/2024 11:37 AM EST 12/28/2024 11:37 AM EST Jenn NEWBERRY LAB BLOOD ORDERABLES Fi nal Result Performing Organization Address [facility]/ZIP Co de Phone Number [facility] [address] [place] [address], [place] [phone] * Hemoglobin A1c (12/28/2024 11:37 AM EST) [facility] Hemoglobin A1C 6.0 <6.5 % LAB CHEMISTRY METHOD 12/28/2024 10:06 PM EST [facility] Mean Bld Glu Estim. 126 mg/dL LAB CHEMISTRY METHOD 12/28/2024 10:06 PM EST [facility] Blood Venous blood specimen / Unknown Venipuncture / Unknown 12/28/2024 11:37 AM EST 12/28/2024 11:37 AM EST Jenn NEWBERRY LAB BLOOD ORDERABLES Fi nal Result [facility] [address] [place] [address], * (ABNORMAL) Basic metabolic panel (12/28/2024 11:37 AM EST) [facility] Sodium 139 133 - 145 mmol/L LAB CHEMISTRY METHOD 12/28/2024 6:04 PM EST [facility] Potassium 5.2 3.5 - 5.5 mmol/L LAB CHEMISTRY METHOD 12/28/2024 6:04 PM [facility] Chloride 107 96 - 110 mmol/L LAB CHEMISTRY METHOD 12/28/2024 6:04 PM [facility] CO2 29 21 - 32 mmol/L LAB CHEMISTRY METHOD 12/28/2024 6:04 PM [facility] Anion Gap 3 3 - 11 LAB CHEMISTRY METHOD 12/28/2024 6:04 PM [facility] Glucose 105(H) 70 - 100 mg/dL LAB CHEMISTRY METHOD 12/28/2024 6:04 PM [facility] BUN 13 5 - 25 mg/dL LAB CHEMISTRY METHOD 12/28/2024 6:04 PM [facility] Creatinine 0.86 0.50 - 1.10 mg/dL LAB CHEMISTRY METHOD 12/28/2024 6:04 PM [facility] eGFR 73 >=60 mL/min/1. 73m2 LAB CHEMISTRY METHOD 12/28/2024 6:04 PM [facility] Comment:Calculation based on the??Chronic Kidney Disease Epidemiology Collaboration (CKD-EPI) equation refit??without adjustment for race. BUN/Creatinine Ratio 15.1 LAB CHEMISTRY METHOD 12/28/2024 6:04 PM [facility] Calcium 10.1 8.5 - 10.5 mg/dL LAB CHEMISTRY METHOD 12/28/2024 6:04 PM [facility] Blood Venous blood specimen / Unknown Venipuncture / Unknown 12/28/2024 11:37 AM EST 12/28/2024 11:37 AM EST us Jenn NEWBERRY LAB BLOOD ORDERABLES Fi nal Result [facility] [address] [place] [address], * Depression Screening (11/21/2023) Depression Screening abstracted us Historical Provider HEALTH MAINTENANCE Final Result * RAJ SCREENING DIGITAL (01/17/2023 10:09 AM EDT) Anatomical Region Laterality Modality Mammography 01/13/2023 10:0 6 AM EDT Narrative 01/17/2023 10:09 AM EDT [facility] Diagnostic Imaging Department [address] [place] [address] [id number] Patient: ??KARINA CLINTON ?/Age/Sex: 1955 - - Unit#: ??[id number] ? Location/Status: ??SPDIMAM/REG CLI ? Mnemonic/Ordering Site: [...] the MLO projection. Computer aided detection with [employer] 7.2-H and im3D 3D 3.1 was employed. TISSUE DENSITY: a. [...] Routine screening mammogram BILATERAL in 1 year. [address]857, [id number], 7025F Dictating Physician: ??PAULETTE RIVERA MD Electronically Signed by: ??PAULETTE RIVERA MD Dic Date/Time: ??01/17/23 1008 Sign date/Time: ??01/17/23 1009 Procedure Note Paulette Rivera MD - 11/25/2023 [facility] Diagnostic Imaging Department [address] [place] [address] Patient: KARINA CLINTON /Age/Sex: 1955 - 67 - F Unit#: [id number] [facility]/Ordering Site: [facility] Ordering Physician: LEISA CRAWFORD MD [facility] Screening Digital - 01/15/23 - 805 EXAM: [facility] Screening Digital EXAM DATE AND TIME: 01/15/2023 8:07 AM HISTORY: Screening. Daughter had breast carcinoma at age 42. COMPARISON: 12/15/20, 12/11/19, 12/07/18 TECHNIQUE: CC and MLO views of both breasts were obtained using fullfield digital mammography. Bilateral digital breast tomosynthesis was performedin the MLO projection. Computer aided detection with [employer] 7.2-H andim3D 3D 3.1 was employed. TISSUE DENSITY: a. [...] Routine screening mammogram BILATERAL in 1 year. 10205, [id number] 3342F, 7025F Dictating Physician: PAUELTTE RIVERA MD Electronically Signed by: PAULETTE RIVERA [...] spine and hips were performed on a [employer] fan beam bone densitometer. ? Bone mineral [...] spine and hips were performed on a [employer] Technologiesfan beam bone densitometer. Bone mineral density measurements [...] PROCEDURES Final Res ult * Colonoscopy (11/24/2017) Colonoscopy no interpretation , abstracted Anatomical Region Laterality Modality Other Historical Provider HEALTH MAINTENANCE Final Result * Hepatitis C Screening (07/27/2013) Hepatitis C Screening abstracted Historical Provider HEALTH MAINTENANCE Final Result from Last 3 Months or Most Recently Relevant to Health Maintenance Insurance [employer] Care Teams Shed Workers Supervisor Relationship Specialty Start Date End Date Isak Harris MD [address] [place] [phone] PCP - General Internal Medicine 05/03/20
--- OUTSIDE RECORDS SUMMARY | 2025-01-02 09:19 | XMS_ITS | Data Portability ---
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 Plan of Treatment Reminders Order Date Submit Date Provider Last Modified By Organization Details Last Modified Time Details Appointments None recorded. Lab pap test, thinprep, cervical 2022 023 [facility] (Centralized Electronic Ordering - All Locations), Patient Can Go To The Location Of Their Choice, [facility] 3 07:28:08 wet mount, vaginal 2020 021 [email or web address] 1 In-Office Order, Internal Use Only DO Not Attach Compendium DO Not Attach Compendium, Do Not Delete/merge, [id number] 10:54:24 CT + NG DNA, PCR, unspecifie d specimen 2020 021 [employer], [address] [place], [address], 07:34:29 Referral None recorded. Procedures None recorded. Surgeries None recorded. Imaging MAMMO, screening, digital, bilateral - Breast Aspiration and/or Biopsy if needed 2022 023 [facility] ([facility]), [address] [place], [address], 4 07:38:38 bone density 2022 023 [facility] ([facility]), [address] [place], [address], 4 07:38:38 US, axilla - severe pain in right axilla which started when she had the mammogram done 01/15/23. She has pain in the right axilla when driving her car, lifting her arm, and at rest. 2022 023 [facility] (Central Scheduling Radiology), [address] [place], [address], 3 12:34:59 US, pelvis, transabdom inal + transvagin al - please do sonogram to assess persistent left ovarian 3 cm cyst noted on CT scans in 2014 and in 2016, please schedule in early September 2021. 2020 021 [facility] (Central Scheduling Radiology), [address] [place], [address], 2 07:08:07 Medication Orders fluconazol e 150 mg tablet 2020 021 [facility]/Pharmacy #[id number], [address] [place], [address], 2 10:47:20 Estring 2 mg (7.5 mcg/24 hour) vaginal ring 2020 021 [facility]/Pharmacy #[id number], [address] [place], [address], 3 10:49:41 Patient TargetsNo targets recorded. Patient Instructions Encounter Date Encounter Id Patient Instructions Last Modified By Organization Details Last Modified Time 06/24/2021 [id number] atrophic vaginitis: care instructions Not available 06/24/2021 10:03:34 This visit is a phone telehealth visit. The patient consented to the visit by phone. The patient was at home at the time of the call and the provider and patient were the only people on the line. I was at [address] [facility], [address], [place], [place], at the time of the call. She [...] 30 minutes. Not available 06/24/2021 10:11:45 07/24/2021 [id number] vaginal yeast infection: care instructions Not available [...] cervical cultures. Not available 07/24/2021 10:55:08 10/29/2021 [id number] atrophic vaginitis: care instructions Not available 10/29/2021 [...] placed easily. Not available 10/29/2021 11:43:49 03/02/2023 [id number] She had her mammogram on 01/15/23, at [...] answered. estuardo Not available 03/02/2023 11:50:39 09/23/2023 [id number] atrophic vaginitis: care instructions estuardo Not available [...] DO Not Attach Compendium, Do Not Delete/merge, [id number] 07/24/2021 10:53:15 07/24/20 21 07/24/2021 wet mount prem Trichomonas negati ve Not Available In-Office Order Internal Use Only DO Not Attach Compendium DO Not Attach Compendium, Do Not Delete/merge, [id number] 07/24/2021 10:53:15 07/24/20 21 07/24/2021 wet mount vagin isai Hyphae positi ve Not Available In-Office Order Internal Use Only DO Not Attach Compendium DO Not Attach Compendium, Do Not Delete/merge, [id number] 07/24/2021 10:53:15 07/24/20 21 07/24/2021 wet mount vagin al atrophic epithelium positi ve Not Available In-Office Order Internal Use Only DO Not Attach Compendium DO Not Attach Compendium, Do Not Delete/merge, [id number] 07/24/2021 10:53:15 06/16/20 21 06/16/2021 PAP1C ASE [id number] ThinP rep Pap, Image d: NEGAT CHEIKH [...] ASCUS . LPS neg, Z12.4 Not Available [facility], Cytopathology Service [address] [place], [address], 06/23/2021 16:15:32 07/24/20 21 07/24/2021 CHLAM YDIA DNA SWAB comments [employer] yusuf howard r of [facility] Of [address] [place] [address] Medic al Dire cassidy carbajal MD Not Available [employer] [address] [place], [address], 07/26/2021 12:30:23 07/24/20 21 07/24/2021 CHLAM YDIA DNA SWAB chlamydia DNA swab NEGATI VE negati ve Not Available [employer] [address] [place], [address], 07/26/2021 12:30:23 07/24/20 21 07/24/2021 GC DNA SWAB comments [employer] yusuf howard r of [facility] [address] [facility] [place] [address] Medic al Dire cassidy carbajal MD Not Available [employer] [address] [place] [address], [address], 07/26/2021 12:30:28 07/24/20 21 07/24/2021 GC DNA SWAB GC DNA swab NEGATI VE negati ve Not Available [employer] [address] [place], [address], 07/26/2021 12:30:28 09/23/20 23 09/23/2023 [facility] CYTOL OGY results Jessica nt Name: KARINA MOREL : 955 (Age: 67) Lab Acces rosina #: [id number] Colle ction Date: 2022 Acces rosina Date: 2022 Sign Out Date: 2022 Tissu e Sourc e: 1: THINP REP CASING SOAKER PAP TEST, CERVI FAISAL: Final Diagn osis: [...] mehta or amy vaz Perfo rmed at [facility] ate Refer ence Labor atory depar tment of Cytol ogy, [address] [place] Clini faisal Histo ry (othe r): z12.4 , lps 06-16 neg Phone #: [phone], On-Ca ll Patho logis t: 14838 Not Available [facility] (Centralized Electronic Ordering - All Locations) Patient Can Go To The Location Of Their Choice, [address] 09/29/2023 09:20:25 08/28/20 21 08/28/2021 bone densi ty No observ ation record ed. [email or web address] Not Available 2020 12:00:55 01/18/20 23 01/15/2023 MAMMO , scree naheed, digit al, bilat eral No observ ation record ed. [email or web address] [facility] (Central Scheduling Radiology) [address] [place], [address], 03/10/2023 13:29:16 03/10/20 23 03/10/2023 US, axill a No observ ation record ed. [facility] (Central Scheduling Radiology) [address] [place], [address], 03/10/2023 13:28:46 Result Notes None recorded. 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 Not Available [facility] 16:52:17 Vitamin deficienc y 95167709 Active Not Available [facility] 16:52:17 Osteopeni a 666925324 Active Not Available [facility] 16:52:17 Unilatera l mastalgia Active Not Available [facility] 16:52:17 Lymphaden opathy 11178162 Active Not Available [facility] 16:52:17 Backache 786046851 Active Not Available [facility] 16:52:17 Bicornuat e uterus 40706011 Active Not Available [facility] 16:52:17 Knee pain Active Not Available [facility] 16:52:17 Shoulder joint pain 060694758 Active Not Available [facility] 16:52:17 Cyst of ovary 45175145 Active 2019 1.3 cm left ovarian cyst noted on CT in 2014 and in 03/2017, unchanged Not Available [facility] 16:52:17 Urinary incontine nce 564175546 Active 2020 Not Available [employer] 16:52:17 Atrophic vaginitis 21425593 Active 2020 Not Available [facility] 16:52:17 Problem Notes None recorded. Procedures Surgical [...] completed Janette Meczywor [place] - [facility], 03/07/2019 09:07:33 8 procedure on back completed Janette Meczywor [place] - [facility], 03/07/2019 09:07:04 6 Other completed Janette Meczywor [place] - [facility], 03/07/2017 08:52:07 5 Other completed Janette Meczywor [place] - [facility], 12/30/2015 09:56:38 5 Most Recent Bone Density completed Janette Meczywor [place] - [facility], 03/03/2017 13:37:27 4 Other completed Janette Meczywor [place] - [facility], 03/07/2015 09:27:24 3 Other completed Janette Meczywor [place] - [facility], 03/07/2015 09:27:24 3 Other completed Janette Meczywor [place] - [facility], 01/10/2013 09:11:34 2 Other completed Janette Meczywor [place] - [facility], 01/10/2013 09:11:34 8 Other completed Janette Meczywor [place] - [facility], 01/10/2013 09:11:34 7 Other completed Janette Meczywor [place] - [facility], 01/10/2013 09:11:34 0 Tubal Ligation completed Janette Meczywor [place] - [facility], 01/10/2013 09:11:34 0 Caesarean Section completed Janette Meczywor [place] - [facility], 01/10/2013 09:11:34 Imaging Results Imaging Date Name Status LastModified by Organiz ation Details LastModified Time 08/28/2021 bone density completed [facility] Information not available 08/31/2021 12:00:55 01/15/2023 MAMMO, screening, digital, bilateral completed [facility] (Central Scheduling Radiology) [address] [place], [address], 03/10/2023 13:29:16 03/10/2023 US, axilla completed [facility] (Central Scheduling Radiology) [address] [place], [address], 03/10/2023 13:28:46 Procedure Notes None recorded. Medical Equipment None Reported. Allergies Allergen ID Allergen Name Allergen Category Reaction Reaction Severity Criticality Documentation Date Start Date Code Code System Note Provider Name and Address Organization Details Recorded Time 72280 adhesive tape environme nt,medica tion hives severe Not available 06/16/2021 [id number] UNK KATHY Ye in [facility], 1 10:40:36 7201 naproxen medicatio n other severe Not available 01/10/2013 7258 RxNorm gi bleed Janette KATHY Simmons in [facility], 3 09:11:34 Medications Name Sig [...] DateTime 06/24/2021 162.56 cm Rosalina Le in [facility], 06/24/2021 09:44:25 Date Recorded Body height Body mass index (BMI) Body weight Body temperature Heart rate Systolic blood pressure Diastolic blood pressure Provider Name and Address Organization Details Last Updated DateTime 1 162.56 cm 33.2 kg/m2 92606.8 4 g 97.2 [degF] 65 /min 152 mm[Hg] 83 mm[Hg] Janette Gonzalez in [facility], 1 10:26:51 Date Recorded Body height Body mass index (BMI) Body weight Body temperature Heart rate Systolic blood pressure Diastolic blood pressure Provider Name and Address Organization Details Last Updated DateTime 2 162.56 cm 30.9 kg/m2 61793.6 3 g 97.4 [degF] 76 /min 144 mm[Hg] 78 mm[Hg] Rosalina Gonzalez in [facility], 2 10:46:31 Date Recorded Body weight Body mass index (BMI) Body height Systolic blood pressure Diastolic blood pressure Provider Name and Address Organization Details Last Updated DateTime 03/02/2023 26417.22 g 31.1 kg/m2 162.56 cm 138 mm[Hg] 77 mm[Hg] Rosalina Francis [place] - [facility], 3 10:31:53 Date Recorded Body height Body mass index (BMI) Body weight Body temperature Heart rate Systolic blood pressure Diastolic blood pressure Provider Name and Address Organization Details Last Updated DateTime 3 162.56 cm 33.2 kg/m2 59269.0 5 g 98.2 [degF] 63 /min 183 mm[Hg] 81 mm[Hg] Janette Ca [place] - [facility], 3 10:47:49 Social History Question Answer Notes LastModified by Organizat ion Details LastModified Time Tobacco Smoking Status Never Smoker Not Available [facility] 08/26/2020 03:19:40 What Is Your Level Of Alcohol Consumption? None [id number] Information not available 08/26/2020 What Is Your Level Of Caffeine Consumption? Occasional [id number] Information not available 08/26/2020 In The 14 [...] Type Of Diet Are You Following? REGULAR [id number] Information not available 08/26/2020 Which Illicit Or Recreational Drugs Have You Used? No [id number] Information not available 08/26/2020 Do You Reside In Or Have You Traveled To An Area Where Ebola Virus Transmission Is Active? No [id number] Information not available 08/26/2020 Do You Or Have You Ever Used E-cigarettes Or Vape? Never Used Electronic Cigarettes [id number] Information not available 08/26/2020 Education 12 Information no t available 01/10/2013 What Is The Highest Grade Or Level Of School You Have Completed Or The Highest Degree You Have Received? 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 No [id number] Information not available 08/26/2020 Do You Or Have You Ever Used Smokeless Tobacco? Never Used Smokeless Tobacco [id number] Information not available 08/26/2020 How Much Tobacco Do You Smoke? No [id number] Information not available 08/26/2020 General Stress Level High Information not available 03/07/2015 Do You Feel Stressed (tense, Restless, Nervous, Or Anxious, Or Unable To Sleep At Night)? [id number] Information not available 06/16/2021 Do You Use [...] Time What is your exercise level? Occasional [id number] Information not available 08/26/2020 Mental Status None [...] for MyRisk panel N Autoimmune Condition N Kidney or Bladder Problems N Thyroid Problems Y Depression N Lung Disease N GI Problems Y Defects or Inherited Disease N Anemia N History of Ovarian Cancer N History of Breast Cancer N NATACHA exposure N BRCA testing in past N Osteopenia Y Psychiatric Illness N Anxiety Disorder N Diabetes N Arthritis Y Headaches or Migraines N Infertility N Asthma Y History of Cancer N Endometriosis N Hepatitis N Heart Disease N Hypertension N [...] formulation 5 completed KATHY Fonseca in [facility], 09/23/2023 10:47:18 Influenza, split virus, quadrivalent, preservative 9 completed KATHY Ye in [facility], 08/17/2021 07:52:13 COVID-19, mRNA, LNP-S, PF, [...] 10:47:18 Influenza, high-dose, quadrivalent, PF 1 completed Ajnette Meczywor null, [place] - [facility] [...] SNOMED-CT Code Diagnosis ICD10 Code Diagnosis Note [id number] MD LEISA Hodge MD [address] [place] [address],[place] [address] 01/10/2013 08:34:08 01/10/2013 12:05:24 [id number] LEISA MATHEWS MD [address] [place] [address],[place] [address] 03/07/2015 09:00:20 03/07/2015 13:09:14 Screening for malignant neoplasm of cervix 757617423 Screening mammography 01112360 Menopausal syndrome 288410029 19801 [facility] LEISA MATHEWS MD [address] [place] [address], [place] [address] 05/27/2015 13:58:02 05/27/2015 16:00:25 Vitamin deficiency 56437409 Osteopenia 058044142 [id number] MD LEISA Hodge MD [address] [place] [address], [place] [address] 12/30/2015 09:50:21 12/30/2015 15:28:39 Unilateral mastalgia 081320118 N64.4 Lymphadenopathy 90322995 R59.0 [id number] MD LEISA Hodge MD [address] [place] [address], [place] [address] 03/07/2017 08:36:47 03/07/2017 11:24:19 Screening for malignant neoplasm of cervix 935855842 Z12.4 Screening mammography 24 591946 Z12.31 [id number] MD LEISA Hodge MD [address] [place] [address], [place] [address] 03/07/2019 08:58:34 03/07/2019 10:04:55 Screening for malignant neoplasm of cervix 549561657 Z12.4 Screening mammography 24 382120 Z12.31 Screening for osteoporosis 172072436 Z13.820 [id number] MD LEISA Hodge MD [address] [place] [address], [place] [address] 11/06/2019 10:31:26 11/06/2019 12:55:26 Pain in pelvis 88919539 R10.2 Cyst of ovary 23234771 N 83.02 [id number] MD LEISA Hodge MD [address] [place] [address],[place] [address] 06/16/2021 10:27:38 06/16/2021 11:36:32 Screening for malignant neoplasm of cervix 255135865 Z12.4 Screening mammography 24 956634 Z12.31 Screening for osteoporosis 803978303 N95.8 Atrophic vaginitis 17995 000 N95.2 Urinary incontinence 165 388232 R32 08100 MD LEISA Hodge MD [address] [place] [address],[facility] [place] [address] 06/24/2021 09:43:00 06/24/2021 11:28:26 Atrophic vaginitis 98778798 N95.2 Cyst of ovary 94278779 N 83.02 [id number] MD LEISA Hodge MD [address] [place] [address],[facility] [place] 5 07/24/2021 10:22:01 07/24/2021 11:26:52 Venereal disease screening 675361860 Z11.3 Candidal vulvovaginitis 20867018 B37.3 10017 MD LEISA Hodge MD [address] [place] [address],[place] [address] 10/29/2021 10:42:22 10/29/2021 12:02:28 Constipation 87166368 K59.00 Menopausal syndrome 1237 00813 N95.9 Atrophic vaginitis 07097 000 N95.2 [id number] MD LEISA Hodge MD [address] [place] [address],[facility] [place] [address] 03/02/2023 10:28:40 03/02/2023 11:52:41 Pain in axilla 787746749 M79.629 [id number] MD LEISA Hodge MD [address] [place] [address], [place] [address] 09/23/2023 10:40:37 09/23/2023 13:30:27 Screening for malignant neoplasm of cervix 294680177 Z12.4 Screening mammography 24 934308 Z12.31 Screening for osteoporosis 960622972 N95.8 Health Concerns Section Related Observation LastModified by Organization Detai ls LastModified Time None Recorded Concern Status LastModified by Organization Details LastModified Time None Recorded Advance Directives Directive None Recorded Payers Encounter Date Sequence Insurance Name Policy Number Policy Hernández Covered Member ID Hernández Member ID Guarantor Name 06/24/2021 1 [employer] (MEDICARE REPLACEMENT PPO) [id number] Karina Mary Beth [id number] Karina Mary Beth 07/24/2021 1 [employer] (MEDICARE REPLACEMENT PPO) [id number] Karina Mary Beth [id number] Karina Mary Beth 10/29/2021 1 [employer] (MEDICARE REPLACEMENT PPO) [id number] Karina Mary Beth [id number] Karina Mary Beth 03/02/2023 1 [employer] (MEDICARE REPLACEMENT/A DVANTAGE - PPO) Karina Mary Beth [id number] Karina Mary Beth 09/23/2023 1 [employer] (MEDICARE REPLACEMENT/A DVANTAGE - PPO) Karina Mary Beth [id number] Karina Mary Beth Notes Date Note Type Note Provider Name and Address Organization Details Recorded Time 06/24/2021 text/html This visit is a phone telehealth visit. The patient consented to the visit by phone. The patient was at home at the time of the call and the provider and patient were the only people on the line. I was at [address] [place] [address], [address], [place], at the time of the call. [...] Mathews MD [address], [place], [address], [facility] - [facility], 06/24/2021 10:27:39 07/24/2021 text/html She is here for a complaint of a vaginal yellow discharge. Her a year ago, she has a new partner, has had recently begun having regular intercourse again. Leisa Mathews MD [address], [place], [address], [facility] - [facility], 07/24/2021 10:56:59 10/29/2021 text/html She is here because she tried to insert the Estring this morning and could not get it in. She did get the old one out. Leisa Mathews MD [address], [place], [address], [facility] - [facility], 10/29/2021 11:44:28 03/02/2023 text/html She [...] MD [address], [place], [address], [facility] - [facility], 03/02/2023 11:50:56 09/23/2023 text/html She [...] has vaginal dryness. Leisa Mathews MD [address] [facility],[address], [place], [address], [place] - [facility], 09/23/2023 11:23:49 OBGyn Episode No OBEpisode recorded.
== END 2025-01-02 09:12 | disposition home or self-care (01) ==
LOC: HO.HOS 08:47
PROVIDERS: PCP Internal Medicine
DX: S63.612A Unspecified sprain of right middle finger, initial encounter (principal)
CPT/HCPCS: 99213

== ENCOUNTER → 2025-01-02 08:47 | Outpatient (BNVA) | payer OTHER, MEDICARE, SELFPAY | PROVIDERS: PCP Internal Medicine | DX: S63.612D Unspecified sprain of right middle finger, subsequent encounter (principal) | CPT/HCPCS: 99212 ==

== ENCOUNTER → 2025-01-15 08:11 | Outpatient (BNVA) | payer OTHER, SELFPAY | PROVIDERS: PCP Internal Medicine; Visit Provider Physician Assistant Medical | DX: S60.211D Contusion of right wrist, subsequent encounter (principal); S80.02XD Contusion of left knee, subsequent encounter; S80.01XD Contusion of right knee, subsequent encounter; S83.412D Sprain of medial collateral ligament of left knee, subsequent encounter; W01.0XXD Fall on same level from slipping, tripping and stumbling without subsequent striking against object, subsequent encounter | CPT/HCPCS: 99213 ==

== ENCOUNTER → 2025-02-12 07:48 | Outpatient (BNVA) | payer OTHER, SELFPAY | PROVIDERS: PCP Internal Medicine; Visit Provider Physician Assistant Medical | DX: S60.211D Contusion of right wrist, subsequent encounter (principal); S80.02XD Contusion of left knee, subsequent encounter; S80.01XD Contusion of right knee, subsequent encounter; S83.412D Sprain of medial collateral ligament of left knee, subsequent encounter; W01.0XXD Fall on same level from slipping, tripping and stumbling without subsequent striking against object, subsequent encounter | CPT/HCPCS: 99213 ==

== ENCOUNTER 2025-02-13 13:00 | Outpatient (RCR) | payer OTHER, MEDICARE, SELFPAY ==
--- NOTE | 2025-01-04 11:29 | MHC.PT.EP ---
[facility] [place] [facility] [place] [facility] [place] Office [address] Valerie Sanchez [address] [phone] F: [phone] F: [phone] F: [phone] F: [phone] Physical Therapy Plan of Care Date of Evaluation: Date of Surgery: Diagnosis: Assessment: Frequency and Duration: The patient will be seen Short Term Goals: Mcc Goals: Treatment Plan: Modalities to reduce pain, spasms and effusion. Manual therapy to restore motion and function. Therapeutic exercise to improve strength and flexibility. Neuromuscular re-education for posture and balance. Therapeutic activities to return to functional activities of daily living. Electronically signed by: Please sign and return to therapist. Thank you for your referral.
== END 2025-06-19 09:09 | disposition home or self-care (01) ==
LOC: HO.OT 13:00
PROVIDERS: PCP Internal Medicine; Visit Provider Registered Nurse
DX: S60.221D Contusion of right hand, subsequent encounter (principal)
CPT/HCPCS: 29130; 97035; 97110; 97140; 97165; 97535; 97760

== ENCOUNTER → 2025-03-12 07:42 | Outpatient (BNVA) | payer OTHER, SELFPAY | PROVIDERS: PCP Internal Medicine; Visit Provider Physician Assistant Medical | DX: S60.211D Contusion of right wrist, subsequent encounter (principal); S80.02XD Contusion of left knee, subsequent encounter; S80.01XD Contusion of right knee, subsequent encounter; S83.412D Sprain of medial collateral ligament of left knee, subsequent encounter; W01.0XXD Fall on same level from slipping, tripping and stumbling without subsequent striking against object, subsequent encounter | CPT/HCPCS: 99213 ==

== ENCOUNTER → 2025-04-18 08:08 | Outpatient (BNVA) | payer OTHER, SELFPAY | PROVIDERS: PCP Internal Medicine; Visit Provider Physician Assistant Medical | DX: S60.211D Contusion of right wrist, subsequent encounter (principal); S80.02XD Contusion of left knee, subsequent encounter; S80.01XD Contusion of right knee, subsequent encounter; S83.412D Sprain of medial collateral ligament of left knee, subsequent encounter; W01.0XXD Fall on same level from slipping, tripping and stumbling without subsequent striking against object, subsequent encounter | CPT/HCPCS: 99213 ==

== ENCOUNTER → 2025-05-16 07:59 | Outpatient (BNVA) | payer OTHER, SELFPAY | PROVIDERS: PCP Internal Medicine; Visit Provider Physician Assistant Medical | DX: S60.211D Contusion of right wrist, subsequent encounter (principal); S80.02XD Contusion of left knee, subsequent encounter; S80.01XD Contusion of right knee, subsequent encounter; S83.412D Sprain of medial collateral ligament of left knee, subsequent encounter; W01.0XXD Fall on same level from slipping, tripping and stumbling without subsequent striking against object, subsequent encounter | CPT/HCPCS: 99213 ==